=== PATIENT | male | born 1945 | race Caucasian/White ===

== ENCOUNTER → 2016-08-23 | Outpatient (CLI) | payer OTHER | LOC: M SMT 08:29 | PROVIDERS: ATTEND Nurse Practitioner Women's Health | DX: R97.20 Elevated prostate specific antigen [PSA] (principal) ==

== ENCOUNTER → 2016-10-28 | Outpatient (REF) | payer OTHER ==
[2016-10-28 11:54] LABS: BASO % 0.5 % (0.0-1.0); EOS # 0.1 K/mm3 (0.0-0.50); EOS % 1.3 % (0.0-3.0); LARGE UNSTAINED CELL # 0.1 K/mm3 (0.0-0.4); LARGE UNSTAINED CELL % 1.1 % (0.0-4.0); LYMPH # 1.4 K/mm3 (1.5-4.5); LYMPH % 17.4 % (24.0-44.0); MEAN CORPUSCULAR HEMOGLOBIN 32.4 pg (27.0-33.0); MEAN CORPUSCULAR HGB CONC 35.6 g/dl (32.0-36.5); MONO # 0.3 K/mm3 (0.0-0.8); MONO % 4.2 % (0.0-5.0); NEUTROPHILS # 5.6 K/mm3 (1.8-7.7); NEUTROPHILS % 75.4 % (36.0-66.0); PLATELET COUNT, AUTOMATED 135 k/mm3 (150-450); RED CELL DISTRIBUTION WIDTH 13.6 % (11.5-14.5); WHITE BLOOD COUNT 7.5 K/mm3 (4.0-10.0)
[2016-10-28 12:31] LABS: CHOLESTEROL LEVEL 168 MG/DL (<200); THYROXINE (T4) 11.3 UG/DL (4.5-12.0); TRIGLYCERIDES LEVEL 439 MG/DL (<150)
== END ==
LOC: M SFHCCLAY 07:55
PROVIDERS: ATTEND Family Medicine
DX: I10 Essential (primary) hypertension (principal); R53.83 Other fatigue; E11.9 Type 2 diabetes mellitus without complications; E78.2 Mixed hyperlipidemia
CPT/HCPCS: 80061; 83036; 83540; 84436; 84443; 84480; 85025; G0463

== ENCOUNTER → 2016-11-17 | Outpatient (CLI) | payer OTHER ==
--- NOTE | 2016-11-17 12:46 | REP ---
LUMBAR SPINE, FIVE VIEWS: HISTORY: Back pain. There is no acute fracture. There is an old compression fracture of the T12 vertebral body with minimal height loss. The lumbar intervertebral discs are decreased in height consistent with disc degeneration. . Osteophytes are present throughout the lumbar spine. There is narrowing of the L4-5 and left L5-S1 facet joints. There are 5 mm of grade 1 spondylolisthesis of L4 on L5. IMPRESSION:Degenerative change as described above.
== END ==
LOC: M CLY 11:43
PROVIDERS: ATTEND Family Medicine
DX: M51.36 Other intervertebral disc degeneration, lumbar region (principal)
CPT/HCPCS: 72110; G0463

== ENCOUNTER → 2017-11-02 | Outpatient (REF) | payer OTHER ==
[2017-11-02 12:12] LABS: ALBUMIN/GLOBULIN RATIO 1.08 (1.00-1.93); ALKALINE PHOSPHATASE 63 U/L (45-117); ALT/SGPT 28 U/L (12-78); ANION GAP 6 MEQ/L (8-16); AST/SGOT 28 U/L (7-37); BILIRUBIN,TOTAL 0.6 MG/DL (0.2-1.0); BLOOD UREA NITROGEN 13 MG/DL (7-18); CALCIUM LEVEL 8.4 MG/DL (8.8-10.2); CARBON DIOXIDE LEVEL 31 MEQ/L (21-32); CHLORIDE LEVEL 105 MEQ/L (98-107); CHOLESTEROL LEVEL 154 MG/DL (<200); CHOLESTEROL RISK RATIO 3.666 (<5); CREATININE FOR GFR 1.14 MG/DL (0.70-1.30); GLOMERULAR FILTRATION RATE > 60.0 (>42); GLUCOSE, FASTING 156 MG/DL (70-100); HDL CHOLESTEROL 42 MG/DL (>40); NON-HDL-C 112 MG/DL; SODIUM LEVEL 142 MEQ/L (136-145); TOTAL PROTEIN 7.7 GM/DL (6.4-8.2); TRIGLYCERIDES LEVEL 422 MG/DL (<150)
[2017-11-02 12:15] LABS: POTASSIUM SERUM 5.2 MEQ/L (3.5-5.1)
[2017-11-02 15:45] LABS: ESTIMATED AVERAGE GLUCOSE 174 MG/DL (60-110); HEMOGLOBIN A1c 7.7 %
== END ==
LOC: M SFHCCLAY 08:03
DX: E78.2 Mixed hyperlipidemia (principal); E11.9 Type 2 diabetes mellitus without complications
CPT/HCPCS: 80053

== ENCOUNTER → 2018-03-08 | Outpatient (REF) | payer OTHER ==
[2018-03-08 11:59] LABS: ALBUMIN 4.4 GM/DL (3.2-5.2); BILIRUBIN,TOTAL 0.6 MG/DL (0.2-1.0); CALCIUM LEVEL 9.2 MG/DL (8.8-10.2); CREATININE FOR GFR 1.64 MG/DL (0.70-1.30); GLOMERULAR FILTRATION RATE 43.9 (>42); POTASSIUM SERUM 4.8 MEQ/L (3.5-5.1); TOTAL PROTEIN 7.9 GM/DL (6.4-8.2)
[2018-03-08 12:06] LABS: HEMOGLOBIN A1c 7.6 %
== END ==
LOC: M SFHCCLAY 08:20
PROVIDERS: ATTEND Family Medicine
DX: E11.9 Type 2 diabetes mellitus without complications (principal)
CPT/HCPCS: 80053; 83036; G0463

== ENCOUNTER → 2018-03-16 | Outpatient (REF) | payer MEDICARE, OTHER ==
[2018-03-16 13:35] LABS: MAU/CREAT RATIO 168.4 MCG/MG (0.0-30.0)
== END ==
LOC: M SFHCCLAY 12:23
PROVIDERS: ATTEND Family Medicine
DX: E11.9 Type 2 diabetes mellitus without complications (principal)

== ENCOUNTER → 2018-06-29 | Outpatient (REF) | payer MEDICARE ==
[2018-06-29 17:15] LABS: ALBUMIN 4.4 GM/DL (3.2-5.2); ALT/SGPT 30 U/L (12-78); BILIRUBIN,TOTAL 0.4 MG/DL (0.2-1.0); BLOOD UREA NITROGEN 19 MG/DL (7-18); CALCIUM LEVEL 8.7 MG/DL (8.8-10.2); CARBON DIOXIDE LEVEL 27 MEQ/L (21-32); CHLORIDE LEVEL 104 MEQ/L (98-107); CHOLESTEROL LEVEL 202 MG/DL (<200); CHOLESTEROL RISK RATIO 4.697 (<5); GLOMERULAR FILTRATION RATE 57.4 (>42); GLUCOSE, FASTING 216 MG/DL (70-100); HDL CHOLESTEROL 43 MG/DL (>40); NON-HDL-C 159 MG/DL; POTASSIUM SERUM 5.1 MEQ/L (3.5-5.1); SODIUM LEVEL 138 MEQ/L (136-145); TOTAL PROTEIN 7.5 GM/DL (6.4-8.2); TRIGLYCERIDES LEVEL 519 MG/DL (<150)
[2018-06-29 17:24] LABS: HEMOGLOBIN A1c 7.3 %
== END ==
LOC: M SFHCCLAY 11:35
PROVIDERS: ATTEND Family Medicine
DX: E11.9 Type 2 diabetes mellitus without complications (principal); E78.2 Mixed hyperlipidemia
CPT/HCPCS: 80053; 80061; 83036; G0463

== ENCOUNTER → 2018-08-14 | Outpatient (REF) | payer MEDICARE ==
[2018-08-15 12:08] LABS: ALBUMIN 4.2 GM/DL (3.2-5.2); BILIRUBIN,TOTAL 0.4 MG/DL (0.2-1.0); CALCIUM LEVEL 9.5 MG/DL (8.8-10.2); CREATININE FOR GFR 1.71 MG/DL (0.70-1.30); GLOMERULAR FILTRATION RATE 41.9 (>42); MAGNESIUM LEVEL 1.5 MG/DL (1.8-2.4); POTASSIUM SERUM 5.6 MEQ/L (3.5-5.1); TOTAL PROTEIN 8.1 GM/DL (6.4-8.2)
== END ==
LOC: M SFHCCLAY 14:29
PROVIDERS: ATTEND Family Medicine
DX: N17.9 Acute kidney failure, unspecified (principal)
CPT/HCPCS: 80053; 83735; G0463

== ENCOUNTER → 2018-08-18 | Outpatient (CLI) | payer MEDICARE ==
--- NOTE | 2018-08-19 07:15 | REP ---
MR LUMBAR SPINE WITHOUT CONTRAST: HISTORY: Back and right leg pain. Decreased signal intensity on T2-weighted images is present in the L1-2 through L4-5 intervertebral discs. The discs are decreased in height. These findings are consistent with disc degeneration. There is no disc bulge or herniation at the L1-2 level. There is hypertrophy of the posterior articulating facets. The L1 nerves exit the neural foramina without compression. A diffuse disc bulge is present at the L2-3 level. There is minimal compression of the thecal sac. There is hypertrophy of the ligamenta flava and posterior articulating facets. The L2 nerves exit the neural foramina without compression. A diffuse disc bulge is present at the L3-4 level. There is hypertrophy of the ligamenta flava and posterior articulating facets. These findings produce minimal central canal stenosis. The L3 nerves exit the neural foramina without compression. A diffuse disc bulge is present at the L4-5 level. There is hypertrophy of the ligamenta flava and posterior articulating facets. There are 3 mm of grade 1 spondylolisthesis of L4 on L5. These findings produce severe central canal stenosis. The L4 nerves exit the neural foramina without compression. A diffuse disc bulge is present at the L5-S1 level. This abuts the thecal sac and S1 nerves. There is hypertrophy of the posterior articulating facets. The L5 nerves exit the neural foramina without compression. The conus medullaris is normal in appearance terminating at the level of the T12-L1 intervertebral disc. Normal signal intensity is present in the lumbar vertebral bodies. IMPRESSION: 1. Diffuse disc bulge at the L2-3 level with minimal thecal sac compression. 2. Minimal central canal stenosis at the L3-4 level secondary to disc bulge, ligamentous and facet hypertrophy. 3. Severe central canal stenosis at the L4-5 level secondary to disc bulge, ligamentous and facet hypertrophy and grade 1 spondylolisthesis. 4. Diffuse disc bulge at the L5-S1 level. This abuts the thecal sac and S1 nerves. Electronically Signed by Silver Dowling MD 08/19/2018 08:45 A
== END ==
LOC: M RAD 13:48
PROVIDERS: ATTEND Family Medicine
DX: M54.5 Low back pain (principal)

== ENCOUNTER → 2018-11-06 | Outpatient (REF) | payer MEDICARE ==
[2018-11-06 16:52] LABS: CHOLESTEROL LEVEL 149 MG/DL (<200); CHOLESTEROL RISK RATIO 4.027 (<5); HDL CHOLESTEROL 37 MG/DL (>40); NON-HDL-C 112 MG/DL; TRIGLYCERIDES LEVEL 425 MG/DL (<150)
[2018-11-06 17:15] LABS: HEMOGLOBIN A1c 7.6 %
== END ==
LOC: M SFHCCLAY 11:46
PROVIDERS: ATTEND Family Medicine
DX: E11.40 Type 2 diabetes mellitus with diabetic neuropathy, unspecified (principal)
CPT/HCPCS: 80061; 83036; G0463

== ENCOUNTER → 2019-02-12 | Outpatient (REF) | payer MEDICARE ==
[2019-02-12 16:49] LABS: ALBUMIN 4.1 GM/DL (3.2-5.2); BILIRUBIN,TOTAL 0.4 MG/DL (0.2-1.0); CALCIUM LEVEL 8.9 MG/DL (8.8-10.2); CREATININE FOR GFR 1.35 MG/DL (0.70-1.30); GLOMERULAR FILTRATION RATE 54.8 (>42); POTASSIUM SERUM 4.5 MEQ/L (3.5-5.1); TOTAL PROTEIN 7.8 GM/DL (6.4-8.2)
[2019-02-12 18:31] LABS: HEMOGLOBIN A1c 8.8 %
== END ==
LOC: M SFHCCLAY 11:11
PROVIDERS: ATTEND Family Medicine
DX: E11.40 Type 2 diabetes mellitus with diabetic neuropathy, unspecified (principal)
CPT/HCPCS: 80053; 83036; G0463

== ENCOUNTER → 2019-05-13 | Outpatient (REF) | payer MEDICARE ==
[2019-05-13 18:34] LABS: ALBUMIN 4.2 GM/DL (3.2-5.2); BILIRUBIN,TOTAL 0.7 MG/DL (0.2-1.0); CALCIUM LEVEL 8.6 MG/DL (8.8-10.2); CREATININE FOR GFR 1.61 MG/DL (0.70-1.30); GLOMERULAR FILTRATION RATE 44.8 (>42); TOTAL PROTEIN 7.8 GM/DL (6.4-8.2)
[2019-05-13 19:07] LABS: HEMOGLOBIN A1c 8.9 %
== END ==
LOC: M SFHCCLAY 09:49
PROVIDERS: ATTEND Family Medicine
DX: E11.40 Type 2 diabetes mellitus with diabetic neuropathy, unspecified (principal)
CPT/HCPCS: 80053; 83036; G0463

== ENCOUNTER → 2019-08-12 | Outpatient (REF) | payer MEDICARE ==
[2019-08-12 13:13] LABS: CALCIUM LEVEL 8.7 MG/DL (8.8-10.2); CREATININE FOR GFR 1.45 MG/DL (0.70-1.30); GLOMERULAR FILTRATION RATE 50.5 (>42); POTASSIUM SERUM 6.3 MEQ/L (3.5-5.1)
[2019-08-12 14:17] LABS: HEMOGLOBIN A1c 8.8 %
== END ==
LOC: M SFHCCLAY 08:46
PROVIDERS: ATTEND Family Medicine
DX: E11.40 Type 2 diabetes mellitus with diabetic neuropathy, unspecified (principal)
CPT/HCPCS: 80048; 83036; G0463

== ENCOUNTER → 2019-11-29 | Outpatient (REF) | payer MEDICARE ==
[2019-11-29 13:00] LABS: HEMATOCRIT 45.3 % (42.0-52.0); HEMOGLOBIN 15.1 g/dl (13.5-17.5); MEAN CORPUSCULAR HEMOGLOBIN 30.3 pg (27.0-33.0); MEAN CORPUSCULAR HGB CONC 33.3 g/dl (32.0-36.5); MEAN CORPUSCULAR VOLUME 90.8 fl (80.0-96.0); PLATELET COUNT, AUTOMATED 162 10^3/uL (150-450); RED BLOOD COUNT 4.99 10^6/uL (4.30-6.10); WHITE BLOOD COUNT 9.2 10^3/uL (4.0-10.0)
[2019-11-29 13:46] LABS: ALT/SGPT 26 U/L (12-78); BILIRUBIN,TOTAL 0.6 MG/DL (0.2-1.0); BLOOD UREA NITROGEN 25 MG/DL (7-18); CALCIUM LEVEL 9.2 MG/DL (8.8-10.2); CARBON DIOXIDE LEVEL 26 MEQ/L (21-32); CHLORIDE LEVEL 102 MEQ/L (98-107); CHOLESTEROL LEVEL 187 MG/DL (<200); CHOLESTEROL RISK RATIO 4.065 (<5); GLOMERULAR FILTRATION RATE 45.1 (>42); GLUCOSE, FASTING 168 MG/DL (70-100); HDL CHOLESTEROL 46 MG/DL (>40); NON-HDL-C 141 MG/DL; POTASSIUM SERUM 4.6 MEQ/L (3.5-5.1); SODIUM LEVEL 135 MEQ/L (136-145); TOTAL PROTEIN 7.6 GM/DL (6.4-8.2); TRIGLYCERIDES LEVEL 457 MG/DL (<150)
[2019-11-29 15:33] LABS: HEMOGLOBIN A1c 8.3 %
== END ==
LOC: M SFHCCLAY 11:48
PROVIDERS: ATTEND Family Medicine
DX: E11.9 Type 2 diabetes mellitus without complications (principal); I10 Essential (primary) hypertension

== ENCOUNTER → 2020-02-27 | Outpatient (REF) | payer MEDICARE ==
[2020-02-27 12:20] LABS: CALCIUM LEVEL 8.9 MG/DL (8.8-10.2); CREATININE FOR GFR 1.72 MG/DL (0.70-1.30); GLOMERULAR FILTRATION RATE 41.4 (>42); POTASSIUM SERUM 4.7 MEQ/L (3.5-5.1)
[2020-02-27 15:07] LABS: HEMOGLOBIN A1c 8.8 %
== END ==
LOC: M SFHCCLAY 09:20
PROVIDERS: ATTEND Family Medicine
DX: E11.40 Type 2 diabetes mellitus with diabetic neuropathy, unspecified (principal)
CPT/HCPCS: 80048; 83036; G0463

== ENCOUNTER → 2020-03-04 | Outpatient (CLI) | payer SELFPAY | LOC: M LABSMTC 13:01 | PROVIDERS: ATTEND Pediatrics | DX: Z11.59 Encounter for screening for other viral diseases (principal) ==

== ENCOUNTER 2020-03-13 12:34 | Inpatient (IN) | payer MEDICARE ==
[~2020-03-13] VITALS: Ht 180.3 cm; Wt 73.0 kg
[2020-03-13 13:21] LABS: BASO % 0.2 % (0.0-1.0); HEMATOCRIT 40.6 % (42.0-52.0); HEMOGLOBIN 13.7 g/dl (13.5-17.5); LYMPH # 0.5 10^3/uL (1.5-5.0); LYMPH % 6.3 % (24.0-44.0); MEAN CORPUSCULAR HEMOGLOBIN 28.8 pg (27.0-33.0); MEAN CORPUSCULAR HGB CONC 33.7 g/dl (32.0-36.5); MEAN CORPUSCULAR VOLUME 85.5 fl (80.0-96.0); MONO # 0.6 10^3/uL (0.0-0.8); MONO % 6.8 % (0.0-5.0); NEUTROPHILS # 7.1 10^3/uL (1.5-8.5); NEUTROPHILS % 86.2 % (36.0-66.0); PLATELET COUNT, AUTOMATED 174 10^3/uL (150-450); RED BLOOD COUNT 4.75 10^6/uL (4.30-6.10); WHITE BLOOD COUNT 8.2 10^3/uL (4.0-10.0)
--- NOTE | 2020-03-13 13:25 | REP ---
INDICATION: Coronavirus workup COMPARISON: None TECHNIQUE: Portable AP view of the chest FINDINGS: The mediastinum and cardiac silhouette are within normal limits for portable technique. The lung flor demonstrate chronic appearing interstitial changes and suspected superimposed lower lobe airspace disease. No effusion. No pneumothorax. IMPRESSION: Cannot exclude superimposed lower lobe airspace disease. <Electronically signed by Ramón Barragan > 03/13/20 [id number]
[2020-03-13 13:46] LABS: INR 1.11; PARTIAL THROMBOPLASTIN TIME 35.3 SECONDS (24.2-38.5); PROTHROMBIN TIME 14.5 SECONDS (12.5-14.3)
[2020-03-13 13:49] LABS: D-DIMER QUANT 1070.8 ng/ml (<500)
[2020-03-13 13:51] LABS: ALBUMIN 3.4 GM/DL (3.2-5.2); ALT/SGPT 20 U/L (12-78); BILIRUBIN,TOTAL 0.9 MG/DL (0.2-1.0); BLOOD UREA NITROGEN 34 MG/DL (7-18); CALCIUM LEVEL 8.8 MG/DL (8.8-10.2); CARBON DIOXIDE LEVEL 25 MEQ/L (21-32); CHLORIDE LEVEL 101 MEQ/L (98-107); CK-MB VALUE MASS 2.3 NG/ML (<3.6); CPK CREATINE PHOSPHOKINASE 241 U/L (39-308); CREATININE FOR GFR 1.69 MG/DL (0.70-1.30); FERRITIN 605 NG/ML (26-388); GLOMERULAR FILTRATION RATE 42.2 (>42); GLUCOSE, FASTING 211 MG/DL (70-100); LDH LACTATE DEHYDROGENASE 485 U/L (87-241); MAGNESIUM LEVEL 1.6 MG/DL (1.8-2.4); MB/CK RELATIVE INDEX 0.95 (< OR =4); POTASSIUM SERUM 3.9 MEQ/L (3.5-5.1); SODIUM LEVEL 134 MEQ/L (136-145); TOTAL PROTEIN 8.1 GM/DL (6.4-8.2); TROPONIN I < 0.02 NG/ML (< 0.10)
[2020-03-13] MEDS ORDERED: NS 1,000 ML IV SCH (14:12)
[2020-03-13] MEDS ORDERED: ANOR1AER INH (14:22)
[2020-03-13] MEDS ORDERED: GNP250TA9 PO (14:22)
[2020-03-13] MEDS ORDERED: FLOM0.4C39 PO (14:22)
[2020-03-13] MEDS ORDERED: OMEP40CA97 PO (14:22)
[2020-03-13] MEDS ORDERED: ALEN70TA82 PO (14:22)
[2020-03-13] MEDS ORDERED: GABA-282 PO (14:22)
[2020-03-13] MEDS ORDERED: ATEN25TA PO (14:22)
[2020-03-13] MEDS ORDERED: GLYCCAP PO (14:22)
[2020-03-13] MEDS ORDERED: TRAM50TA2 PO (14:22)
[2020-03-13] MEDS ORDERED: CETI-24 PO (14:22)
[2020-03-13] MEDS ORDERED: ATOR80TA59 PO (14:22)
[2020-03-13] MEDS ORDERED: vit d (14:22)
[2020-03-13] MEDS ORDERED: CALC-190 PO (14:22)
[2020-03-13] MEDS ORDERED: LANTINJ4 SC (14:24)
[2020-03-13] MEDS ORDERED: CALC600T52 PO (15:30)
[2020-03-13] MEDS ORDERED: CYAN2500 SL (15:30)
[2020-03-13] MEDS ORDERED: cefTRIAXone SOD 1 GM in D5W MINI-BAG PLUS 50 ML IV SCH (15:30)
[2020-03-13] MEDS ORDERED: VITA500054 PO (15:30)
[2020-03-13] MEDS ORDERED: NITR4TASL SL (15:30)
[2020-03-13] MEDS ORDERED: AZITHROMYCIN INJ 500 MG, VIAL MATE ADAPTER 1 EACH in D5W 250 ML IV SCH (15:30)
[2020-03-13] MEDS ORDERED: ASPI81TA26 PO (15:30)
[2020-03-13] MEDS ORDERED: NITROGLYCERIN 0.4 MG SUBL TABLET SL PRN (15:45)
[2020-03-13] MEDS ORDERED: COMBIVENT RESPIMAT 100-20MCG INHALER 4GM INH PRN (15:45)
[2020-03-13] MEDS ORDERED: DEXTROSE 50% 50 ML SYRINGE IV PRN (16:45)
[2020-03-13] MEDS ORDERED: GLUCAGON INJ 1MG VIAL SC PRN (16:45)
[2020-03-13] MEDS ORDERED: GLUCOSE 4GM CHEW TABLET PO PRN (16:45)
--- NOTE | 2020-03-13 16:50 | HPEPDOC ---
General Date of Admission Mar 13, 2020 at 15:25 Date of Service: Mar 13, 2020 Chief Complaint The patient is a 74-year-old male admitted with a reason for visit of Covid- 19/Hypoxia. Source: Patient, Family History of Present Illness Mr. Richardson is a 74-year-old male with COPD and diabetes mellitus who presents for altered mental status and hypoxia. He is currently a poor historian and has some difficulty hearing. I spoke to the who is able present more of the history. On March 04, he was tested for coded because his daughter was COVID positive. He had tested positive and his test and negative. He was asymptomatic until 03/08/2020, they became confused and not feeling well. It was worse in the evening. Then, in the past few days, he's been very lethargic and stayed in bed most of the time. There is brought to the ED today, and at room air he saturated between 80% -88%. He required 3 L to maintain saturations above 88%. When I spoke with him, he tells me that he lost 4 days. Otherwise reports dyspnea and occasional cough. He has some sharp chest pain when he coughs. He also has decreased appetite. Otherwise denies fever, headache, changes in vision, or abdominal pain. Lungs had dry crackles. Chest x- ray suspected superimposed lower lobe airspace disease. His pro-calcitonin was elevated at 1.61. Patient will be admitted for COVID pneumonia and metabolic encephalopathy Home Medications Scheduled Alendronate Sodium (Alendronate Sodium) 70 Mg Tablet, 70 MG PO QWEEK, (Reported) MONDAY Aspirin (Aspirin EC) 81 Mg Tablet.dr, 81 MG PO QHS, (Reported) Atenolol (Atenolol) 25 Mg Tablet, 25 MG PO QHS, (Reported) Atorvastatin Calcium (Atorvastatin Calcium) 80 Mg Tablet, 80 MG PO QHS, (Repo rted) Calcium Carbonate/Vitamin D3 (Calcium 600-Vit D3 400 Tablet) 1 Each Tablet, 1 TAB PO BID, (Reported) Cetirizine HCl (Cetirizine HCl) 10 Mg Tablet, 10 MG PO DAILY, (Reported) Cholecalciferol (Vitamin D3) (Vitamin D3) 125 Mcg Capsule, 125 MCG PO DAILY, (Reported) Cyanocobalamin (Vitamin B-12) (Vitamin B-12) 2,500 Mcg Tab.subl, 2,500 MCG SL DAILY, (Reported) Gabapentin (Gabapentin) 300 Mg Capsule, 300 MG PO QHS, (Reported) Insulin Glargine,Hum.rec.anlog (Lantus Solostar) 100 Unit/1 Ml Insuln.pen, 50 UNIT SC QHS, (Reported) Magnesium Oxide (Magnesium) 250 Mg Tablet, 250 MG PO BID, (Reported) Omeprazole (Omeprazole) 40 Mg Capsule.dr, 40 MG PO DAILY, (Reported) Tamsulosin HCl (Flomax) 0.4 Mg Capsule, 0.4 MG PO DAILY, (Reported) Umeclidinium Brm/Vilanterol Tr (Anoro Ellipta 62.5-25 Mcg INH) 1 Each Blst.w.dev, 1 PUFF INH DAILY, (Reported) Scheduled PRN Nitroglycerin (Nitrostat) 0.4 Mg Tab.subl, 0.4 MG SL Q5MP PRN for CHEST PAIN, (Reported) Tramadol HCl (Tramadol HCl) 50 Mg Tablet, 50 MG PO QID PRN for PAIN, (Reported) Allergies Coded Allergies: Penicillins (Verified Allergy, Severe, anaphylaxis, 03/13/20) anaph Past Medical History Medical History 1. COPD 2. Diabetes mellitus type 2 3. History of CHF 4. Hyperlipidemia Surgical History 1. Cholecystectomy 2. 3 hernia repairs Family History He tells me that he does not know his mother's or father's past medical history Social History * Smoker: former Smoker (quit smoking in 1989) Alcohol: Denies Drugs: denies A-FIB/CHADSVASC A-FIB History Current/History of A-Fib/PAF?: No Review of Systems Constitutional: Denies: Fever Eyes: Denies: Vision change ENT: Denies: Sore Throat Skin: Denies: Rash Pulmonary: Reports: Dyspnea, Cough Cardiovascular: Reports: Chest Pain (sharp, worsened with coughing) Gastrointestinal: Denies: Nausea, Abdominal Pain Genitourinary: Denies: Dysuria Hematologic: Reports: Bruising Neurological: Denies: Numbness Psych: Reports: Memory Issues (lost 4 days) Physical Examination General Exam: Positive: Cooperative Eye Exam: Positive: EOMI; Negative: Sclera icteric ENT Exam: Positive: Atraumatic Neck Exam: Positive: Supple Chest Exam: Positive: Rhonchi Heart Exam: Positive: Rate Normal, Regular Rhythm Abdomen Exam: Positive: Normal bowel sounds, Soft, Tenderness (mild periumbilical tenderness) Extremity Exam: Negative: Edema Skin Exam: Positive: Nl turgor and temperature Neuro Exam: Positive: Cranial Nerves 3-12 NL Psych Exam: Negative: Memory Intact Vital Signs Vital Signs Date Time Temp Pulse Resp B/P (MAP) Pulse Ox O2 Delivery O2 Flow Rate FiO2 03/13/20 13:25 99 88 Nasal Cannula 3.0 03/13/20 13:15 127/74 (91) 03/13/20 12:49 98.1 24 Laboratory Data Labs 24H Laboratory Tests 2 03/13/20 13:03: Immature Granulocyte % (Auto) 0.5, Neutrophils (%) (Auto) 86.2H, Lymphocytes (%) (Auto) 6.3L, Monocytes (%) (Auto) 6.8H, Eosinophils (%) (Auto) 0.0, Basophils (%) (Auto) 0.2, Neutrophils # (Auto) 7.1, Lymphocytes # (Auto) 0.5L, Monocytes # (Auto) 0.6, Eosinophils # (Auto) 0.0, Basophils # (Auto) 0.0, Nucleated Red Blood Cells % (auto) 0.0, Prothrombin Time 14.5H, Prothromb Time International Ratio 1.11, Activated Partial Thromboplast Time 35.3, Fibrinogen 718H, D-Dimer, Quantitative 1070.80H, Anion Gap 8, Glomerular Filtration Rate 42.2, Lactic Acid Level 2.7*H, Calcium Level 8.8, Magnesium Level 1.6L, Ferritin 605H, Total Bilirubin 0.9, Aspartate Amino Transf (AST/SGOT) 39H, Alanine Aminotransferase (ALT/SGPT) 20, Alkaline Phosphatase 66, Lactate Dehydrogenase 485H, Total Creatine Kinase 241, Creatine Kinase MB 2.3, Creatine Kinase MB Relative Index 0.95, Troponin I < 0.02, C-Reactive Protein, Quantitative 13.80H, Total Protein 8.1, Albumin 3.4, Albumin/Globulin Ratio 0.7, Procalcitonin 1.61 CBC/BMP Laboratory Tests 03/13/20 13:03 Microbiology Microbiology 03/13/20 Blood Culture, Received Pending Assessment/Plan Mr. Richardson is a 74-year-old male with COPD and diabetes mellitus who presents for metabolic encephalopathy was likely secondary to COVID Pneumonia. With the elevated procalcitonin, will treat with antibiotics for CAP. Due to penicillin allergy, will used Levofloxacin. For COVID infection, he will be given dexamethasone, Remdesivir, and DVT ppx of lovenox. Cautious due to CKD. Plan / VTE VTE Prophylaxis Ordered?: Yes Plan Plan 1. Metabolic encephalopathy Most likely secondary to COVID pneumonia We'll check UA as well Treat underlying cause Supportive care 2. COVID pneumonia Hypoxic, at room air saturating between 80%-88% Dexamethasone and Remdesivir Due to chronic kidney disease, we'll do DVT prophylaxis level of Lovenox Trend inflammatory markers Since Pro calcitonin is elevated at 1.6, we'll give antibiotics 3. COPD Not an exacerbation Convert Anoro Elipta to Spiriva and Perforomist Combivent as needed pressure is of breath or wheezing 4. Diabetes mellitus Since on carb consistent diet, we'll decrease his basal insulin from 50 units at bedtime to 25 units at bedtime Sliding scale insulin with hypoglycemia protocol Carbohydrate consistent diet 5. GERD Continue omeprazole 6. BPH Continue tamsulosin 7. DVT prophylaxis Lovenox subcutaneous MARNI FRIEDMAN DO Mar 13, 2020 16:33
[2020-03-13] MEDS ORDERED: SODIUM CHLORIDE 0.9% INJ 10 ML SYR IV ONE (17:30)
[2020-03-13 20:00] VITALS: O2SAT 90
[2020-03-13] MEDS: FORMOTEROL FUMARATE 20 MCG/2 ML INHALATION SOLUTION (PERFOROMIST) INH SCH (20:00)
[2020-03-13] MEDS ORDERED: LEVEMIR (INSULIN DETEMIR) 1 UNITS/0.01ML SC SCH (21:00)
[2020-03-13] MEDS: HumaLOG INSULIN (NovoLOG) PER UNIT SC SCH ×2 (21:00→21:28)
[2020-03-13] MEDS: OMEPRAZOLE 20 MG CAP PO SCH (21:29)
[2020-03-13] MEDS: TAMSULOSIN 0.4 MG CAP PO SCH (21:29)
[2020-03-13] MEDS: GABAPENTIN 300 MG CAP PO SCH (21:33)
[2020-03-13] MEDS: ATORVASTATIN 20 MG TAB PO SCH (21:34)
[2020-03-13] MEDS: atenoloL 25 MG TAB PO SCH (21:34)
[2020-03-13] MEDS: LEVEMIR (INSULIN DETEMIR) 1 UNITS/0.01ML SC SCH (21:35)
[2020-03-13] MEDS: ASPIRIN 81 MG ENTERIC TAB PO SCH (21:35)
[2020-03-13 22:00] VITALS: BP 115/65
[2020-03-14] VITALS (8 sets, daily range): BP systolic 96–126; BP diastolic 56–64; O2SAT 89–92
[2020-03-14] MEDS: LevoFLOXacin IV 750 MG in IV 1 EA IV SCH (00:17)
[2020-03-14 07:13] LABS: BASO % 0.1 % (0.0-1.0); EOS % 0.1 % (0.0-3.0); HEMATOCRIT 37.5 % (42.0-52.0); HEMOGLOBIN 12.7 g/dl (13.5-17.5); LYMPH # 0.5 10^3/uL (1.5-5.0); LYMPH % 6.6 % (24.0-44.0); MEAN CORPUSCULAR HEMOGLOBIN 29.6 pg (27.0-33.0); MEAN CORPUSCULAR HGB CONC 33.9 g/dl (32.0-36.5); MEAN CORPUSCULAR VOLUME 87.4 fl (80.0-96.0); MONO # 0.4 10^3/uL (0.0-0.8); MONO % 5.6 % (0.0-5.0); NEUTROPHILS # 6.4 10^3/uL (1.5-8.5); NEUTROPHILS % 87.1 % (36.0-66.0); PLATELET COUNT, AUTOMATED 171 10^3/uL (150-450); RED BLOOD COUNT 4.29 10^6/uL (4.30-6.10); WHITE BLOOD COUNT 7.4 10^3/uL (4.0-10.0)
[2020-03-14 07:41] LABS: INR 1.05; PROTHROMBIN TIME 13.9 SECONDS (12.5-14.3)
[2020-03-14 07:42] LABS: PARTIAL THROMBOPLASTIN TIME 34.9 SECONDS (24.2-38.5)
[2020-03-14 07:46] LABS: ALBUMIN 2.9 GM/DL (3.2-5.2); BILIRUBIN,DIRECT 0.2 MG/DL (0.0-0.2); BILIRUBIN,TOTAL 0.6 MG/DL (0.2-1.0); CALCIUM LEVEL 7.9 MG/DL (8.8-10.2); CREATININE FOR GFR 1.41 MG/DL (0.70-1.30); MAGNESIUM LEVEL 1.5 MG/DL (1.8-2.4); POTASSIUM SERUM 4.1 MEQ/L (3.5-5.1); TOTAL PROTEIN 6.5 GM/DL (6.4-8.2)
[2020-03-14] MEDS: FORMOTEROL FUMARATE 20 MCG/2 ML INHALATION SOLUTION (PERFOROMIST) INH SCH ×2 (08:00→20:00)
[2020-03-14] MEDS: TIOTROPIUM INHALER/CAPSULE (SPIRIVA) INH SCH (08:00)
[2020-03-14] MEDS: dexameTHASONE 4 MG/ML 1ML VIAL (J1100 PER 1MG) IV SCH (09:08)
[2020-03-14] MEDS: ENOXAPARIN 40MG/0.4ML SYRINGE (J1650 PER 10MG) SC SCH (09:09)
[2020-03-14] MEDS: HumaLOG INSULIN (NovoLOG) PER UNIT SC SCH ×4 (09:10→20:27)
[2020-03-14] MEDS: OMEPRAZOLE 20 MG CAP PO SCH (09:10)
[2020-03-14] MEDS: TAMSULOSIN 0.4 MG CAP PO SCH (09:11)
[2020-03-14] MEDS: CETIRIZINE (ZyrTEC) 10 MG TAB PO SCH (09:11)
--- NOTE | 2020-03-14 09:21 | ECGEPIP ---
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
[2020-03-14] MEDS: MAG SULF 1GM/100ML (MAG RUN) 1 GM in IV 1 EA IV SCH ×2 (09:38→11:04)
[2020-03-14] MEDS: traMADol 50 MG TAB PO PRN (09:39)
--- NOTE | 2020-03-14 14:42 | IPNPDOC ---
Subjective Date Seen The patient was seen on 03/14/20. Subjective Chief Complaint/HPI Mr. Richardson is a 74-year-old male with COPD and diabetes mellitus who presents for altered mental status and hypoxia. Overnight, his oxygen requirements increased to 15L Venti mask. This morning, he was feeling better and mentally clearer. A&Ox3. His answers were appropriate and coherent. Denies dyspnea, chest pain, or abdominal pain. When he takes off the mask, his oxygen does decrease, but rapidly increases when mask is back on. We spoke about code status, and he requested to be DNR/DNI. I discussed it with his , Carlee. She also agrees that his mentation is significantly better (she spoke with him this morning) and also agrees to DNR/DNI (he had called her prior to me calling about code status). Objective Physical Examination General Exam: Positive: Cooperative Eye Exam: Positive: EOMI; Negative: Sclera icteric ENT Exam: Positive: Atraumatic Neck Exam: Positive: Supple Chest Exam: Positive: Rhonchi Heart Exam: Positive: Rate Normal, Regular Rhythm Abdomen Exam: Positive: Normal bowel sounds, Soft, Tenderness (mild periumbilical tenderness) Extremity Exam: Negative: Edema Skin Exam: Positive: Nl turgor and temperature Neuro Exam: Positive: Cranial Nerves 3-12 NL Psych Exam: Positive: Oriented x 3 Assessment /Plan Assessment Mr. Richardson is a 74-year-old male with COPD and diabetes mellitus who presents for metabolic encephalopathy was likely secondary to COVID Pneumonia. With the elevated procalcitonin, will treat with antibiotics for CAP. Due to penicillin allergy, will used Levofloxacin. For COVID infection, he will be given dexamethasone, Remdesivir, and DVT ppx of lovenox. Cautious with Lovenox due to CKD. Plan/VTE VTE Prophylaxis Ordered?: Yes Plan 1. Metabolic encephalopathy Most likely secondary to COVID pneumonia We'll check UA as well Treat underlying cause Supportive care -Resolved 2. COVID pneumonia Hypoxic, at room air saturating between 80%-88% Dexamethasone and Remdesivir Due to chronic kidney disease, we'll do DVT prophylaxis level of Lovenox Trend inflammatory markers Since Pro calcitonin is elevated at 1.6, we'll give antibiotics 3. COPD Not an exacerbation Convert Anoro Elipta to Spiriva and Perforomist Combivent as needed pressure is of breath or wheezing 4. Diabetes mellitus Since on carb consistent diet, we'll decrease his basal insulin from 50 units at bedtime to 25 units at bedtime Sliding scale insulin with hypoglycemia protocol Carbohydrate consistent diet 5. GERD Continue omeprazole 6. BPH Continue tamsulosin 7. DVT prophylaxis Lovenox subcutaneous Disposition: Home when oxygen requirements reach 4L NC or lower VS, I&O, 24H, Fishbone Vital Signs/I&O Vital Signs Date Time Temp Pulse Resp B/P (MAP) Pulse Ox O2 Delivery O2 Flow Rate FiO2 03/14/20 10:09 20 03/14/20 09:25 97.4 83 126/64 (84) 87 Venturi Mask 15.0 40 I&O- Last 24 Hours up to 6 AM 03/14/20 06:00 Intake Total 750 ml Balance 750 ml Laboratory Data 24H LABS Laboratory Tests 2 03/13/20 17:59: Lactic Acid Followup at 4 Hours 2.0 03/13/20 18:00: 03/13/20 20:35: Bedside Glucose (Misc Panel) 228H 03/14/20 06:33: Immature Granulocyte % (Auto) 0.5, Neutrophils (%) (Auto) 87.1H, Lymphocytes (%) (Auto) 6.6L, Monocytes (%) (Auto) 5.6H, Eosinophils (%) (Auto) 0.1, Basophils (%) (Auto) 0.1, Neutrophils # (Auto) 6.4, Lymphocytes # (Auto) 0.5L, Monocytes # (Auto) 0.4, Eosinophils # (Auto) 0.0, Basophils # (Auto) 0.0, Nucleated Red Blood Cells % (auto) 0.0, Prothrombin Time 13.9, Prothromb Time International Ratio 1.05, Activated Partial Thromboplast Time 34.9, Fibrinogen 632H, Anion Gap 8, Glomerular Filtration Rate 52.0, Calcium Level 7.9L, Magnesium Level 1.5L, Ferritin 643H, Total Bilirubin 0.6, Direct Bilirubin 0.2, Aspartate Amino Transf (AST/SGOT) 39H, Alanine Aminotransferase (ALT/SGPT) 20, Alkaline Phosphatase 60, OZ-Fhm-A-Type Natriuretic Peptide 169, Total Protein 6.5, Albumin 2.9L, Albumin/Globulin Ratio 0.8, Procalcitonin 1.08 03/14/20 11:10: Bedside Glucose (Misc Panel) 142H CBC/BMP Laboratory Tests 03/14/20 06:33 Microbiology Microbiology 03/13/20 Blood Culture - Preliminary, Resulted No growth after 24 hours . All specim... MARNI FRIEDMAN DO Mar 14, 2020 14:42
[2020-03-14] MEDS: ATORVASTATIN 20 MG TAB PO SCH (20:24)
[2020-03-14] MEDS: atenoloL 25 MG TAB PO SCH (20:26)
[2020-03-14] MEDS: GABAPENTIN 300 MG CAP PO SCH (20:26)
[2020-03-14] MEDS: ASPIRIN 81 MG ENTERIC TAB PO SCH (20:26)
[2020-03-14] MEDS: LEVEMIR (INSULIN DETEMIR) 1 UNITS/0.01ML SC SCH (20:28)
[2020-03-14] MEDS: SODIUM CHLORIDE 0.9% INJ 10 ML SYR IV SCH (20:28)
[2020-03-15 04:00] VITALS: O2SAT 92
[2020-03-15 07:52] LABS: BASO % 0.1 % (0.0-1.0); HEMATOCRIT 36.1 % (42.0-52.0); HEMOGLOBIN 12.6 g/dl (13.5-17.5); LYMPH # 0.4 10^3/uL (1.5-5.0); LYMPH % 4.9 % (24.0-44.0); MEAN CORPUSCULAR HEMOGLOBIN 30.4 pg (27.0-33.0); MEAN CORPUSCULAR HGB CONC 34.9 g/dl (32.0-36.5); MONO # 0.4 10^3/uL (0.0-0.8); MONO % 5.3 % (0.0-5.0); NEUTROPHILS # 6.5 10^3/uL (1.5-8.5); NEUTROPHILS % 89.2 % (36.0-66.0); PLATELET COUNT, AUTOMATED 194 10^3/uL (150-450); RED BLOOD COUNT 4.15 10^6/uL (4.30-6.10); WHITE BLOOD COUNT 7.3 10^3/uL (4.0-10.0)
[2020-03-15 08:00] VITALS: BP 118/65; O2SAT 93
[2020-03-15] MEDS: FORMOTEROL FUMARATE 20 MCG/2 ML INHALATION SOLUTION (PERFOROMIST) INH SCH ×2 (08:00→18:57)
[2020-03-15] MEDS: TIOTROPIUM INHALER/CAPSULE (SPIRIVA) INH SCH (08:00)
[2020-03-15 08:13] LABS: INR 1.17; PROTHROMBIN TIME 15.2 SECONDS (12.5-14.3)
[2020-03-15 08:15] LABS: PARTIAL THROMBOPLASTIN TIME 37.3 SECONDS (24.2-38.5)
[2020-03-15 08:27] LABS: D-DIMER QUANT 702.04 ng/ml (<500)
[2020-03-15 08:36] LABS: ALBUMIN 2.9 GM/DL (3.2-5.2); BILIRUBIN,DIRECT 0.2 MG/DL (0.0-0.2); BILIRUBIN,TOTAL 0.5 MG/DL (0.2-1.0); CALCIUM LEVEL 8.4 MG/DL (8.8-10.2); CREATININE FOR GFR 1.39 MG/DL (0.70-1.30); GLOMERULAR FILTRATION RATE 52.9 (>42); MAGNESIUM LEVEL 2.1 MG/DL (1.8-2.4); POTASSIUM SERUM 4.4 MEQ/L (3.5-5.1); TOTAL PROTEIN 6.4 GM/DL (6.4-8.2)
[2020-03-15] MEDS: HumaLOG INSULIN (NovoLOG) PER UNIT SC SCH ×4 (09:03→21:59)
[2020-03-15] MEDS: ENOXAPARIN 40MG/0.4ML SYRINGE (J1650 PER 10MG) SC SCH (09:04)
[2020-03-15] MEDS: dexameTHASONE 4 MG/ML 1ML VIAL (J1100 PER 1MG) IV SCH (09:04)
[2020-03-15] MEDS: OMEPRAZOLE 20 MG CAP PO SCH (09:04)
[2020-03-15] MEDS: TAMSULOSIN 0.4 MG CAP PO SCH (09:04)
[2020-03-15] MEDS: CETIRIZINE (ZyrTEC) 10 MG TAB PO SCH (09:05)
[2020-03-15 12:00] VITALS: BP 113/59; O2SAT 94
[2020-03-15 16:00] VITALS: BP 118/67; O2SAT 89
[2020-03-15] MEDS: LevoFLOXacin IV 750 MG in IV 1 EA IV SCH (17:34)
[2020-03-15] MEDS: SODIUM CHLORIDE 0.9% INJ 10 ML SYR IV SCH (17:48)
[2020-03-15 19:38] VITALS: BP 109/56
[2020-03-15 20:00] VITALS: O2SAT 90
[2020-03-15] MEDS: atenoloL 25 MG TAB PO SCH (21:55)
[2020-03-15] MEDS: ASPIRIN 81 MG ENTERIC TAB PO SCH (21:55)
[2020-03-15] MEDS: GABAPENTIN 300 MG CAP PO SCH (21:55)
[2020-03-15] MEDS: LEVEMIR (INSULIN DETEMIR) 1 UNITS/0.01ML SC SCH (22:00)
[2020-03-15] MEDS: ATORVASTATIN 20 MG TAB PO SCH (22:02)
--- NOTE | 2020-03-15 22:43 | IPNPDOC ---
Subjective Date Seen The patient was seen on 03/15/20. Subjective Chief Complaint/HPI Mr. Richardson is a 74-year-old male with COPD and diabetes mellitus who presents for altered mental status and hypoxia. Today, he still requires 15L Ventimask. He feels comfortable, denies dyspnea or chest pain. Objective Physical Examination General Exam: Positive: Cooperative Eye Exam: Positive: EOMI; Negative: Sclera icteric ENT Exam: Positive: Atraumatic Neck Exam: Positive: Supple Chest Exam: Positive: Rhonchi Heart Exam: Positive: Rate Normal, Regular Rhythm Abdomen Exam: Positive: Normal bowel sounds, Soft, Tenderness (mild periumbilical tenderness) Extremity Exam: Negative: Edema Skin Exam: Positive: Nl turgor and temperature Neuro Exam: Positive: Cranial Nerves 3-12 NL Psych Exam: Positive: Oriented x 3 Assessment /Plan Assessment Mr. Richardson is a 74-year-old male with COPD and diabetes mellitus who presents for metabolic encephalopathy was likely secondary to COVID Pneumonia. With the elevated procalcitonin, will treat with antibiotics for CAP. Due to penicillin allergy, will used Levofloxacin. For COVID infection, he will be given dexamethasone, Remdesivir, and DVT ppx of lovenox. Cautious with Lovenox due to CKD. Plan/VTE VTE Prophylaxis Ordered?: Yes Plan 1. Metabolic encephalopathy Most likely secondary to COVID pneumonia We'll check UA as well Treat underlying cause Supportive care -Resolved 2. COVID pneumonia Hypoxic, at room air saturating between 80%-88% Dexamethasone and Remdesivir Due to chronic kidney disease, we'll do DVT prophylaxis level of Lovenox Trend inflammatory markers Since Pro calcitonin is elevated at 1.6, we'll give antibiotics 3. COPD Not an exacerbation Convert Anoro Elipta to Spiriva and Perforomist Combivent as needed pressure is of breath or wheezing 4. Diabetes mellitus Since on carb consistent diet, we'll decrease his basal insulin from 50 units at bedtime to 25 units at bedtime Sliding scale insulin with hypoglycemia protocol Carbohydrate consistent diet 5. GERD Continue omeprazole 6. BPH Continue tamsulosin 7. DVT prophylaxis Lovenox subcutaneous Disposition: Home when oxygen requirements reach 4L NC or lower VS, I&O, 24H, Fishbone Vital Signs/I&O Vital Signs Date Time Temp Pulse Resp B/P (MAP) Pulse Ox O2 Delivery O2 Flow Rate FiO2 03/15/20 22:10 15.0 50 03/15/20 21:55 66 109/56 03/15/20 20:00 90 Venturi Mask 03/15/20 19:38 97.1 22 I&O- Last 24 Hours up to 6 AM 03/15/20 06:00 Intake Total 1500 ml Balance 1500 ml Laboratory Data 24H LABS Laboratory Tests 2 03/15/20 07:19: Immature Granulocyte % (Auto) 0.5, Neutrophils (%) (Auto) 89.2H, Lymphocytes (%) (Auto) 4.9L, Monocytes (%) (Auto) 5.3H, Eosinophils (%) (Auto) 0.0, Basophils (%) (Auto) 0.1, Neutrophils # (Auto) 6.5, Lymphocytes # (Auto) 0.4L, Monocytes # (Auto) 0.4, Eosinophils # (Auto) 0.0, Basophils # (Auto) 0.0, Nucleated Red Blood Cells % (auto) 0.0, Prothrombin Time 15.2H, Prothromb Time International Ratio 1.17, Activated Partial Thromboplast Time 37.3, Fibrinogen 565H, D-Dimer, Quantitative 702.04H, Anion Gap 7L, Glomerular Filtration Rate 52.9, Calcium Level 8.4L, Magnesium Level 2.1, Ferritin 679H, Total Bilirubin 0.5, Direct Bilirubin 0.2, Aspartate Amino Transf (AST/SGOT) 37, Alanine Aminotransferase (ALT/SGPT) 19, Alkaline Phosphatase 62, VY-Zyc-O-Type Natriuretic Peptide 419, Total Protein 6.4, Albumin 2.9L, Albumin/Globulin Ratio 0.8, Procalcitonin 0.55 03/15/20 11:14: Bedside Glucose (Misc Panel) 172H 03/15/20 16:32: Bedside Glucose (Misc Panel) 261H 03/15/20 21:54: Bedside Glucose (Misc Panel) 300H CBC/BMP Laboratory Tests 03/15/20 07:19 Microbiology Microbiology 03/13/20 Blood Culture - Preliminary, Resulted No Growth after 48 hours. All Specime... MARNI FRIEDMAN DO Mar 15, 2020 22:43
[2020-03-16] VITALS (12 sets, daily range): BP systolic 100–116; BP diastolic 53–64; O2SAT 85–96
[2020-03-16] MEDS: traMADol 50 MG TAB PO PRN ×2 (00:23→09:04)
[2020-03-16] MEDS: HumaLOG INSULIN (NovoLOG) PER UNIT SC SCH ×4 (07:30→20:23)
[2020-03-16 07:59] LABS: BASO % 0.1 % (0.0-1.0); HEMATOCRIT 39.5 % (42.0-52.0); LYMPH # 0.6 10^3/uL (1.5-5.0); LYMPH % 4.5 % (24.0-44.0); MEAN CORPUSCULAR HEMOGLOBIN 29.1 pg (27.0-33.0); MEAN CORPUSCULAR HGB CONC 32.9 g/dl (32.0-36.5); MEAN CORPUSCULAR VOLUME 88.4 fl (80.0-96.0); MONO # 0.4 10^3/uL (0.0-0.8); MONO % 2.9 % (0.0-5.0); NEUTROPHILS # 11.5 10^3/uL (1.5-8.5); PLATELET COUNT, AUTOMATED 245 10^3/uL (150-450); RED BLOOD COUNT 4.47 10^6/uL (4.30-6.10); WHITE BLOOD COUNT 12.5 10^3/uL (4.0-10.0)
[2020-03-16] MEDS: FORMOTEROL FUMARATE 20 MCG/2 ML INHALATION SOLUTION (PERFOROMIST) INH SCH ×2 (08:00→20:00)
[2020-03-16] MEDS: TIOTROPIUM INHALER/CAPSULE (SPIRIVA) INH SCH (08:00)
[2020-03-16 08:17] LABS: ALBUMIN 2.9 GM/DL (3.2-5.2); BILIRUBIN,DIRECT 0.1 MG/DL (0.0-0.2); BILIRUBIN,TOTAL 0.5 MG/DL (0.2-1.0); CALCIUM LEVEL 9.2 MG/DL (8.8-10.2); CREATININE FOR GFR 1.37 MG/DL (0.70-1.30); GLOMERULAR FILTRATION RATE 53.8 (>42); MAGNESIUM LEVEL 1.9 MG/DL (1.8-2.4); POTASSIUM SERUM 4.3 MEQ/L (3.5-5.1); TOTAL PROTEIN 7.1 GM/DL (6.4-8.2)
[2020-03-16] MEDS: CETIRIZINE (ZyrTEC) 10 MG TAB PO SCH (08:50)
[2020-03-16] MEDS: OMEPRAZOLE 20 MG CAP PO SCH (08:50)
[2020-03-16] MEDS: TAMSULOSIN 0.4 MG CAP PO SCH (08:51)
[2020-03-16] MEDS: dexameTHASONE 4 MG/ML 1ML VIAL (J1100 PER 1MG) IV SCH (08:52)
[2020-03-16] MEDS: ENOXAPARIN 40MG/0.4ML SYRINGE (J1650 PER 10MG) SC SCH (08:53)
[2020-03-16 08:54] LABS: INR 1.12; PROTHROMBIN TIME 14.6 SECONDS (12.5-14.3)
[2020-03-16 13:06] LABS: MYCOPLASMA PNEUMONIAE IgG 2421 U/mL (0-99); MYCOPLASMA PNEUMONIAE IgM <770 U/mL (0-769)
[2020-03-16] MEDS: SODIUM CHLORIDE 0.9% INJ 10 ML SYR IV SCH (17:40)
[2020-03-16] MEDS: REMDESIVIR 100 MG in NS 250 ML IV SCH (17:42)
--- NOTE | 2020-03-16 18:35 | IPNPDOC ---
Subjective Date Seen The patient was seen on 03/16/20. Subjective Chief Complaint/HPI OBJECTIVE: Pt seen at bedside and examined. Pt had no acute events overnight. inflammatory markers also improving. Pt is anxiously waiting to go home when i spoke with him this morning. AAOx3 this am; denies CP, abd pain, fever, chills. PHYSICAL EXAM VS: see below. vapotherm 100%FIO2 satting 91% this am Constitutional: Awake and alert, in no apparent distress ENT: Sclera are clear. Mucosa is moist. Respiratory: mild expiratory rales in L Lower lobes and on R side. Able to speak in full sentences w/o being sob. No accessory muscle use. Cardiovascular: Regular heart rate no murmurs Gastrointestinal: Abdomen is soft, non distended, non tender, BS present. Musculoskeletal: No lower extremity edema. R Neurologic: No focal neurological deficit. AAO x3, normal affect Skin: Warm, dry, no cyanosis or clubbing ASSESSMENT AND PLAN: Mr. Richardson is a 74-year-old male with COPD and diabetes mellitus who presents for metabolic encephalopathy was likely secondary to COVID Pneumonia. With the elevated procalcitonin, will treat with antibiotics for CAP. Due to penicillin allergy, will used Levofloxacin. For COVID infection, he will be given dexamethasone, Remdesivir, and DVT ppx of lovenox. Cautious with Lovenox due to CKD. # COVID pneumonia Currently vapotherm 100% FIO2 satting 91% c/w Dexamethasone and Remdesivir Due to CKD, lovenox prophalytic dose for anticoag c/w trending inflammatory markers c/w with abx - will re-order procal to de-escalate abx #COPD (not in exacerbation) Pt takes Anoro Elipta as home regimen - Will switch to Spiriva and Perforomist c/w Combivent PRN #NIDDM c/w 25 units basal insulin Sliding scale insulin with hypoglycemia protocol Carbohydrate consistent diet #GERD C/w omeprazole #BPH C/w tamsulosin DVT ppx: Lovenox GI ppx: omeprazole Fluids:none Diet: consistent carb Code status: DNR/DNI Disposition: Home when oxygen requirements reach 4L NC or lower Objective Physical Examination General Exam: Positive: Cooperative Eye Exam: Positive: EOMI; Negative: Sclera icteric ENT Exam: Positive: Atraumatic Neck Exam: Positive: Supple Chest Exam: Positive: Rhonchi Heart Exam: Positive: Rate Normal, Regular Rhythm Abdomen Exam: Positive: Normal bowel sounds, Soft, Tenderness (mild periumbilical tenderness) Extremity Exam: Negative: Edema Skin Exam: Positive: Nl turgor and temperature Neuro Exam: Positive: Cranial Nerves 3-12 NL Psych Exam: Positive: Oriented x 3 Assessment /Plan Plan/VTE VTE Prophylaxis Ordered?: Yes VS, I&O, 24H, Fishbone Vital Signs/I&O Vital Signs Date Time Temp Pulse Resp B/P (MAP) Pulse Ox O2 Delivery O2 Flow Rate FiO2 03/16/20 12:00 98.1 84 106/57 (73) 89 HVNI-Vapotherm 40.0 100 03/16/20 09:34 20 I&O- Last 24 Hours up to 6 AM 03/16/20 06:00 Intake Total 1570 ml Balance 1570 ml Laboratory Data 24H LABS Laboratory Tests 2 03/15/20 16:32: Bedside Glucose (Misc Panel) 261H 03/15/20 21:54: Bedside Glucose (Misc Panel) 300H 03/16/20 06:23: Immature Granulocyte % (Auto) 0.5, Neutrophils (%) (Auto) 92.0H, Lymphocytes (%) (Auto) 4.5L, Monocytes (%) (Auto) 2.9, Eosinophils (%) (Auto) 0.0, Basophils (%) (Auto) 0.1, Neutrophils # (Auto) 11.5H, Lymphocytes # (Auto) 0.6L, Monocytes # (Auto) 0.4, Eosinophils # (Auto) 0.0, Basophils # (Auto) 0.0, Nucleated Red Blood Cells % (auto) 0.0, Prothrombin Time 14.6H, Prothromb Time International Ratio 1.12, Activated Partial Thromboplast Time 35.0, Fibrinogen 462H, Anion Gap 9, Glomerular Filtration Rate 53.8, Calcium Level 9.2, Magnesium Level 1.9, Ferritin 700H, Total Bilirubin 0.5, Direct Bilirubin 0.1, Aspartate Amino Transf (AST/SGOT) 33, Alanine Aminotransferase (ALT/SGPT) 19, Alkaline Phosphatase 64, AW-Mzx-D-Type Natriuretic Peptide 665H, Total Protein 7.1, Albumin 2.9L, Albumin /Globulin Ratio 0.7, Procalcitonin 0.31 03/16/20 12:16: Bedside Glucose (Misc Panel) 177H 03/16/20 15:52: Bedside Glucose (Misc Panel) 231H CBC/BMP Laboratory Tests 03/16/20 06:23 Microbiology Microbiology 03/13/20 Blood Culture - Preliminary, Resulted No Growth after 72 hours. All specime... GME ATTESTATION GME ATTESTATION My faculty preceptor for this patient encounter was physically present during the encounter and was fully available. All aspects of the patient interview, examination, medical decision making process, and medical care plan development were reviewed and approved by the faculty preceptor. The faculty preceptor is aware and concurs with the plan as stated in the body of this note and will attest to such by his/her cosignature. ATTENDING NOTE I, Mamadou Lyle MD, have independently examined this patient and performed my own physical exam, as well as reviewed the documentation and edited where necessary. I have discussed in detail with the resident / student the findings and plan of treatment as documented by the resident / student and edited their note. I agree with their findings and treatment plan and have edited their documentation. Tessa Cooley DO Mar 16, 2020 16:48 MAMADOU LYLE MD Mar 20, 2020 14:57
[2020-03-16] MEDS: atenoloL 25 MG TAB PO SCH (20:23)
[2020-03-16] MEDS: GABAPENTIN 300 MG CAP PO SCH (20:23)
[2020-03-16] MEDS: ASPIRIN 81 MG ENTERIC TAB PO SCH (20:23)
[2020-03-16] MEDS: ATORVASTATIN 20 MG TAB PO SCH (20:23)
[2020-03-16] MEDS: LEVEMIR (INSULIN DETEMIR) 1 UNITS/0.01ML SC SCH (20:24)
[2020-03-17 04:18] VITALS: BP 119/51; O2SAT 88
[2020-03-17] MEDS ORDERED: ACETAMINOPHEN TAB 650MG DOSE (2X325MG) As Ordered ONE (06:05)
[2020-03-17] MEDS: ACETAMINOPHEN TAB 650MG DOSE (2X325MG) PO PRN ×2 (06:10→21:19)
[2020-03-17 07:48] LABS: BASO % 0.2 % (0.0-1.0); EOS % 0.1 % (0.0-3.0); HEMOGLOBIN 12.1 g/dl (13.5-17.5); LYMPH # 0.5 10^3/uL (1.5-5.0); LYMPH % 4.6 % (24.0-44.0); MEAN CORPUSCULAR HEMOGLOBIN 29.1 pg (27.0-33.0); MEAN CORPUSCULAR HGB CONC 33.6 g/dl (32.0-36.5); MEAN CORPUSCULAR VOLUME 86.5 fl (80.0-96.0); MONO # 0.2 10^3/uL (0.0-0.8); MONO % 1.4 % (0.0-5.0); NEUTROPHILS # 9.6 10^3/uL (1.5-8.5); NEUTROPHILS % 93.1 % (36.0-66.0); PLATELET COUNT, AUTOMATED 243 10^3/uL (150-450); RED BLOOD COUNT 4.16 10^6/uL (4.30-6.10); WHITE BLOOD COUNT 10.4 10^3/uL (4.0-10.0)
[2020-03-17 07:50] LABS: INR 1.19; PROTHROMBIN TIME 15.4 SECONDS (12.5-14.3)
[2020-03-17 07:52] LABS: PARTIAL THROMBOPLASTIN TIME 30.9 SECONDS (24.2-38.5)
[2020-03-17] MEDS: FORMOTEROL FUMARATE 20 MCG/2 ML INHALATION SOLUTION (PERFOROMIST) INH SCH (07:53)
[2020-03-17] MEDS: TIOTROPIUM INHALER/CAPSULE (SPIRIVA) INH SCH (07:54)
[2020-03-17 08:00] VITALS: BP 100/54; O2SAT 91
[2020-03-17 08:13] LABS: ALBUMIN 2.5 GM/DL (3.2-5.2); BILIRUBIN,DIRECT 0.3 MG/DL (0.0-0.2); CALCIUM LEVEL 8.8 MG/DL (8.8-10.2); CREATININE FOR GFR 1.33 MG/DL (0.70-1.30); GLOMERULAR FILTRATION RATE 55.7 (>42); MAGNESIUM LEVEL 1.6 MG/DL (1.8-2.4); POTASSIUM SERUM 3.8 MEQ/L (3.5-5.1); TOTAL PROTEIN 6.7 GM/DL (6.4-8.2)
[2020-03-17] MEDS: HumaLOG INSULIN (NovoLOG) PER UNIT SC SCH ×4 (09:55→21:00)
[2020-03-17] MEDS: ENOXAPARIN 40MG/0.4ML SYRINGE (J1650 PER 10MG) SC SCH ×2 (09:59→21:18)
[2020-03-17] MEDS: OMEPRAZOLE 20 MG CAP PO SCH (10:00)
[2020-03-17] MEDS: CETIRIZINE (ZyrTEC) 10 MG TAB PO SCH (10:00)
[2020-03-17] MEDS: TAMSULOSIN 0.4 MG CAP PO SCH (10:00)
[2020-03-17] MEDS ORDERED: FUROSEMIDE 20MG/2ML VIAL (J1940) IV ONE (10:30)
[2020-03-17] MEDS ORDERED: dexameTHASONE 20MG/5ML VIAL (J1100 PER 1MG) IV SCH (11:00)
[2020-03-17 12:00] VITALS: BP 94/48; O2SAT 92
[2020-03-17] MEDS: LevoFLOXacin 750 MG TABLET PO SCH (12:48)
--- NOTE | 2020-03-17 14:17 | IPNPDOC ---
Subjective Date Seen The patient was seen on 03/17/20. Subjective Chief Complaint/HPI SUBJECTIVE: Pt seen at bedside and examined. Pt continues to require vapotherm and not improving or able to be weaned off O2. Attending physician (Dr. Lyle) personally spoke to patient about proning and the benefits of it, but patient is not interested. He's fully alert and oriented x3 this am. He refuses BIPAP as well. All risks and benefits have been discussed and patient verbalizes that they understand the risks of refusing further interventions. Comfort measure conversation has been attempted however, pt refused to talk and states t hat he wants to be left alone. OBJECTIVE: PHYSICAL EXAM VS: see below. vapotherm 100% satting 88% Constitutional: Awake and alert x3, mild respiratory distress ENT: Sclera are clear. Mucosa is moist. Respiratory: tachypneic, and mild respiratory distress Cardiovascular: Regular heart rate no murmurs. no peripheral edema appreciated Gastrointestinal: Abdomen is soft, non distended, non tender, BS present. Musculoskeletal: No lower extremity edema. R Neurologic: No focal neurological deficit. AAO x3, normal affect Skin: Warm, dry, no cyanosis or clubbing ASSESSMENT AND PLAN: Mr. Richardson is a 74-year-old male with COPD and diabetes mellitus who presents for metabolic encephalopathy was likely secondary to COVID Pneumonia. With the elevated procalcitonin, will treat with antibiotics for CAP. Due to penicillin allergy, will used Levofloxacin. For COVID infection, he will be given de xamethasone, Remdesivir, and DVT ppx of lovenox and admitted for further mgmt and care. # Acute hypoxic respiratory failure 2/2 COVID pneumonia Currently vapotherm 100% FIO2 satting 88% - Pt is non-compliant with proning and refuses proning c/w Dexamethasone 6mg IV BID and Remdesivir Due to CKD, lovenox prophalytic dose for anticoag c/w trending inflammatory markers c/w with abx - Will incr lovenox to BID #COPD (not in exacerbation) Pt takes Anoro Elipta as home regimen - C/w Spiriva and Perforomist c/w Combivent PRN #NIDDM c/w 25 units basal insulin Sliding scale insulin with hypoglycemia protocol Carbohydrate consistent diet #GERD C/w omeprazole #BPH C/w tamsulosin DVT ppx: Lovenox BID GI ppx: omeprazole Fluids:none Diet: consistent carb Code status: DNR/DNI Disposition: With patient refusing proning and other interventions, he's likely to decompensate and get worse. Will bring up CUTTING SUPERVISOR measures again tomorrow if patient cooperates by then. ADDENDUM: At 2:45pm, Pt's family ( Carlee Richardson) was called and updated on his hospital course and his condition. Dr. Lyle with the nurse as witness at bedside, spoke with the patient about Comfort measures. Objective Physical Examination General Exam: Positive: Cooperative Eye Exam: Positive: EOMI; Negative: Sclera icteric ENT Exam: Positive: Atraumatic Neck Exam: Positive: Supple Chest Exam: Positive: Rhonchi Heart Exam: Positive: Rate Normal, Regular Rhythm Abdomen Exam: Positive: Normal bowel sounds, Soft, Tenderness (mild periumbilical tenderness) Extremity Exam: Negative: Edema Skin Exam: Positive: Nl turgor and temperature Neuro Exam: Positive: Cranial Nerves 3-12 NL Psych Exam: Positive: Oriented x 3 Assessment /Plan Plan/VTE VTE Prophylaxis Ordered?: Yes VS, I&O, 24H, Fishbone Vital Signs/I&O Vital Signs Date Time Temp Pulse Resp B/P (MAP) Pulse Ox O2 Delivery O2 Flow Rate FiO2 03/17/20 12:00 92 HVNI-Vapotherm 40.0 100 03/17/20 08:00 99.2 81 25 100/54 (69) I&O- Last 24 Hours up to 6 AM 03/17/20 06:00 Intake Total 2880 ml Output Total 950 ml Balance 1930 ml Laboratory Data 24H LABS Laboratory Tests 2 03/16/20 15:52: Bedside Glucose (Misc Panel) 231H 03/16/20 20:21: Bedside Glucose (Misc Panel) 281H 03/17/20 06:59: Immature Granulocyte % (Auto) 0.6, Neutrophils (%) (Auto) 93.1H, Lymphocytes (%) (Auto) 4.6L, Monocytes (%) (Auto) 1.4, Eosinophils (%) (Auto) 0.1, Basophils (%) (Auto) 0.2, Neutrophils # (Auto) 9.6H, Lymphocytes # (Auto) 0.5L, Monocytes # (Auto) 0.2, Eosinophils # (Auto) 0.0, Basophils # (Auto) 0.0, Nucleated Red Blood Cells % (auto) 0.0, Prothrombin Time 15.4H, Prothromb Time International Ratio 1.19, Activated Partial Thromboplast Time 30.9, Fibrinogen 616H, Anion Gap 8, Glomerular Filtration Rate 55.7, Calcium Level 8.8, Magnesium Level 1.6L, Ferritin 650H, Total Bilirubin 1.0#, Direct Bilirubin 0.3H, Aspartate Amino Transf (AST/SGOT) 31, Alanine Aminotransferase (ALT/SGPT) 14, Alkaline Phosphatase 61, PC-Rae-R-Type Natriuretic Peptide 871H, Total Protein 6.7, Albumin 2.5L, Albumin/Globulin Ratio 0.6, Procalcitonin 0.39 03/17/20 11:01: Bedside Glucose (Misc Panel) 127H CBC/BMP Laboratory Tests 03/17/20 06:59 Microbiology Microbiology 03/13/20 Blood Culture - Preliminary, Resulted No Growth after 72 hours. All specime... GME ATTESTATION GME ATTESTATION My faculty preceptor for this patient encounter was physically present during the encounter and was fully available. All aspects of the patient interview, examination, medical decision making process, and medical care plan development were reviewed and approved by the faculty preceptor. The faculty preceptor is aware and concurs with the plan as stated in the body of this note and will attest to such by his/her cosignature. ATTENDING NOTE I, Ramakrishna Lyle MD, have independently examined this patient and performed my own physical exam, as well as reviewed the documentation and edited where necessary. I have discussed in detail with the resident / student the findings and plan of treatment as documented by the resident / student and edited their note. I agree with their findings and treatment plan and have edited their documentation. Tessa Cooley DO Mar 17, 2020 13:58 RAMAKRISHNA LYLE MD Mar 20, 2020 14:58
[2020-03-17] MEDS ORDERED: SCOPOLAMINE 1MG TRANSDERMAL PATCH TOP PRN (14:45)
[2020-03-17] MEDS ORDERED: LORazepam 1 MG TAB PO PRN (14:45)
[2020-03-17 16:00] VITALS: BP 103/72; O2SAT 85
[2020-03-17] MEDS: REMDESIVIR 100 MG in NS 250 ML IV SCH (18:57)
[2020-03-17] MEDS: SODIUM CHLORIDE 0.9% INJ 10 ML SYR IV SCH (18:58)
[2020-03-17] MEDS: traMADol 50 MG TAB PO PRN (18:59)
[2020-03-17 20:00] VITALS: O2SAT 90
[2020-03-17] MEDS: dexameTHASONE 4 MG/ML 1ML VIAL (J1100 PER 1MG) IV SCH (21:18)
[2020-03-17] MEDS: GABAPENTIN 300 MG CAP PO SCH (21:18)
[2020-03-17] MEDS: ASPIRIN 81 MG ENTERIC TAB PO SCH (21:18)
[2020-03-17] MEDS: ATORVASTATIN 20 MG TAB PO SCH (21:18)
[2020-03-17] MEDS: LEVEMIR (INSULIN DETEMIR) 1 UNITS/0.01ML SC SCH (21:18)
[2020-03-17 21:21] VITALS: BP 146/67
[2020-03-17] MEDS: atenoloL 25 MG TAB PO SCH (21:30)
[2020-03-18] VITALS (15 sets, daily range): BP systolic 86–115; BP diastolic 50–67; O2SAT 88–97
[2020-03-18] MEDS: FORMOTEROL FUMARATE 20 MCG/2 ML INHALATION SOLUTION (PERFOROMIST) INH SCH ×3 (04:11→20:00)
[2020-03-18 05:17] LABS: BASO % 0.1 % (0.0-1.0); LYMPH # 0.3 10^3/uL (1.5-5.0); LYMPH % 3.8 % (24.0-44.0); MEAN CORPUSCULAR HGB CONC 33.3 g/dl (32.0-36.5); MONO # 0.1 10^3/uL (0.0-0.8); MONO % 1.1 % (0.0-5.0); NEUTROPHILS # 7.5 10^3/uL (1.5-8.5); NEUTROPHILS % 94.4 % (36.0-66.0); PLATELET COUNT, AUTOMATED 231 10^3/uL (150-450); RED BLOOD COUNT 4.14 10^6/uL (4.30-6.10)
[2020-03-18 05:53] LABS: ALBUMIN 2.5 GM/DL (3.2-5.2); BILIRUBIN,DIRECT 0.3 MG/DL (0.0-0.2); BILIRUBIN,TOTAL 0.7 MG/DL (0.2-1.0); CALCIUM LEVEL 8.1 MG/DL (8.8-10.2); CREATININE FOR GFR 1.46 MG/DL (0.70-1.30); MAGNESIUM LEVEL 1.7 MG/DL (1.8-2.4); POTASSIUM SERUM 4.5 MEQ/L (3.5-5.1); TOTAL PROTEIN 6.1 GM/DL (6.4-8.2)
[2020-03-18 05:57] LABS: INR 1.42; PROTHROMBIN TIME 17.7 SECONDS (12.5-14.3)
[2020-03-18 05:59] LABS: PARTIAL THROMBOPLASTIN TIME 41.9 SECONDS (24.2-38.5)
[2020-03-18] MEDS: TIOTROPIUM INHALER/CAPSULE (SPIRIVA) INH SCH (08:00)
[2020-03-18 08:28] LABS: D-DIMER QUANT 1732.91 ng/ml (<500)
[2020-03-18] MEDS: HumaLOG INSULIN (NovoLOG) PER UNIT SC SCH ×4 (08:51→21:00)
[2020-03-18] MEDS: dexameTHASONE 4 MG/ML 1ML VIAL (J1100 PER 1MG) IV SCH ×2 (08:53→20:50)
[2020-03-18] MEDS: ENOXAPARIN 40MG/0.4ML SYRINGE (J1650 PER 10MG) SC SCH ×2 (08:53→20:50)
[2020-03-18] MEDS: OMEPRAZOLE 20 MG CAP PO SCH (08:53)
[2020-03-18] MEDS: TAMSULOSIN 0.4 MG CAP PO SCH (08:53)
[2020-03-18] MEDS: CETIRIZINE (ZyrTEC) 10 MG TAB PO SCH (08:53)
--- NOTE | 2020-03-18 09:56 | REP ---
INDICATION: hypoxia covid + COMPARISON: 03/13/2020 TECHNIQUE: Portable AP view of the chest FINDINGS: The mediastinum and cardiac silhouette are stable and within normal limits for portable technique. The lung flor demonstrate stable chronic appearing interstitial changes. Subtle superimposed atelectasis cannot be excluded. No significant discrete focal consolidation, effusion, or pneumothorax identified. Skeletal structures are intact. IMPRESSION: Stable chronic appearing changes. No obvious focal consolidation or effusion. Cannot exclude subtle superimposed atelectasis. <Electronically signed by Ramón Barragan > 03/18/20 0952
[2020-03-18] MEDS: MAG SULF 1GM/100ML (MAG RUN) 1 GM in IV 1 EA IV SCH ×4 (10:52→13:55)
[2020-03-18] MEDS: SODIUM CHLORIDE 0.9% INJ 10 ML SYR IV SCH (17:39)
[2020-03-18] MEDS: REMDESIVIR 100 MG in NS 250 ML IV SCH (17:39)
--- NOTE | 2020-03-18 18:49 | IPNPDOC ---
Subjective Date Seen The patient was seen on 03/18/20. Subjective Chief Complaint/HPI SUBJECTIVE: Overnight team (Dr. Martinez) was called to patient's room due desaturations to the 70s. After much discussion, pt is agreeable to try BIPAP and he was subsequently transferred to the ICU and started on BIPAP and consulted pulmonology for further recommendations in terms of mgmt. This am, he's NAD, sitting up in his bed and being very compliant with his BIPAP. He states that he feels much better and denies CP, sob, abdominal pain, n/v/d. OBJECTIVE: PHYSICAL EXAM VS: see below. BIPAP 02/15 satting above 90% Constitutional: Awake and alert x3, NAD, able to speak in full sentences without desaturations or sob ENT: Sclera are clear. Mucosa is moist. Respiratory: decreased breath sounds in bilateral lung bases; unable to ap preciate wheezing, rales Cardiovascular: Regular heart rate no murmurs. no peripheral edema appreciated Gastrointestinal: Abdomen is soft, non distended, non tender, BS present. Musculoskeletal: No lower extremity edema appreciated; non tender on palpation Neurologic: No focal neurological deficit. AAO x3, normal affect Skin: Warm, dry, no cyanosis or clubbing ASSESSMENT AND PLAN: This is a 74-year-old male with a PMHx significant for COPD and NIDDM, who presents to [facility] ER with altered mental status and shortness of breath. Pt is a bad historian and most of the history was gathered from patient's . According to her, patient was exposed to his daughter who was COVID positive. He was tested for COVID on 03/04 and the results were positive; however, he was asymptomatic until 03/08/2020 when he started feeling more confused and progressively more lethargic and weak. He also Pt reports that he's also had a decreased appetite since his symptoms started and reports occassional coughs which causes some sharp chest pain. In the ED, he was satting between 80-88% on RA and required 3L NC to maintain saturations above 88%. He initially had an elevated procal and XR chest shows chronic lower lobe airspace disease. During his hospitalization, pt continues to require more oxygenation and maxed out on vapotherm and after having many talks with the patient as well as his about his treatment options, he agreed to try on BIPAP and was thereafter transferred to the ICU. Will order a portable XR to see progression of his PNA. # Acute hypoxic respiratory failure 2/2 COVID pneumonia Currently on BIPAP maintaining sats ; will try to transition to Vapotherm as tolerated - Pt is non-compliant with proning - repeat portable XR today - pending results - Will continue to trend inflammatory markers c/w Dexamethasone 6mg IV BID and Remdesivir - Therapuetic dose of lovenox c/w with abx levaquin - Pulmonology (Dr. Gifford) consulted- greatly appreciate further recommendations #COPD (not in exacerbation) Pt takes Anoro Elipta as home regimen - C/w Spiriva and Perforomist c/w Combivent PRN #NIDDM c/w 25 units basal insulin Sliding scale insulin with +FSBS + hypoglycemia protocol Carbohydrate consistent diet #GERD C/w omeprazole #BPH C/w tamsulosin DVT ppx: Lovenox BID GI ppx: omeprazole Fluids:none Diet: consistent carb Code status: DNR/DNI Disposition: Pt's condition is guarded, although he's now agreeable to BIPAP and has been satting above 90%. Pending repeat portable CXR. Pulm consult- appreciate recs Objective Physical Examination General Exam: Positive: Cooperative Eye Exam: Positive: EOMI; Negative: Sclera icteric ENT Exam: Positive: Atraumatic Neck Exam: Positive: Supple Chest Exam: Positive: Rhonchi Heart Exam: Positive: Rate Normal, Regular Rhythm Abdomen Exam: Positive: Normal bowel sounds, Soft, Tenderness (mild periumbilical tenderness) Extremity Exam: Negative: Edema Skin Exam: Positive: Nl turgor and temperature Neuro Exam: Positive: Cranial Nerves 3-12 NL Psych Exam: Positive: Oriented x 3 Assessment /Plan Plan/VTE VTE Prophylaxis Ordered?: Yes VS, I&O, 24H, Fishbone Vital Signs/I&O Vital Signs Date Time Temp Pulse Resp B/P (MAP) Pulse Ox O2 Delivery O2 Flow Rate FiO2 03/18/20 17:02 92 HVNI-Vapotherm 40.0 100 03/18/20 10:00 73 20 102/59 (73) 03/18/20 08:00 97.5 I&O- Last 24 Hours up to 6 AM 03/18/20 06:00 Intake Total 1680 ml Output Total 750 ml Balance 930 ml Laboratory Data 24H LABS Laboratory Tests 2 03/17/20 20:46: Bedside Glucose (Misc Panel) 159H 03/18/20 04:48: Immature Granulocyte % (Auto) 0.6, Neutrophils (%) (Auto) 94.4H, Lymphocytes (%) (Auto) 3.8L, Monocytes (%) (Auto) 1.1, Eosinophils (%) (Auto) 0.0, Basophils (%) (Auto) 0.1, Neutrophils # (Auto) 7.5, Lymphocytes # (Auto) 0.3L, Monocytes # (Auto) 0.1, Eosinophils # (Auto) 0.0, Basophils # (Auto) 0.0, Nucleated Red Blood Cells % (auto) 0.0, Prothrombin Time 17.7H, Prothromb Time International Ratio 1.42, Activated Partial Thromboplast Time 41.9H, Fibrinogen 667H, D-Dimer, Quantitative 1732.91H, Anion Gap 9, Glomerular Filtration Rate 50.0, Calcium Level 8.1L, Magnesium Level 1.7L, Ferritin 792H, Total Bilirubin 0.7, Direct Bilirubin 0.3H, Aspartate Amino Transf (AST/SGOT) 36, Alanine Aminotransferase (ALT/SGPT) 16, Alkaline Phosphatase 59, MR-Tje-Y-Type Natriuretic Peptide 674H, Total Protein 6.1L, Albumin 2.5L, Albumin/Globulin Ratio 0.7, Procalcitonin 2.79 03/18/20 08:46: Bedside Glucose (Misc Panel) 143H 03/18/20 11:42: Bedside Glucose (Misc Panel) 197H 03/18/20 13:14: Magnesium Level 3.0H 03/18/20 17:10: Bedside Glucose (Misc Panel) 261H CBC/BMP Laboratory Tests 03/18/20 04:48 Microbiology Microbiology 03/13/20 Blood Culture - Final, Complete NO GROWTH AFTER 5 DAYS GME ATTESTATION GME ATTESTATION My faculty preceptor for this patient encounter was physically present during the encounter and was fully available. All aspects of the patient interview, examination, medical decision making process, and medical care plan development were reviewed and approved by the faculty preceptor. The faculty preceptor is aware and concurs with the plan as stated in the body of this note and will attest to such by his/her cosignature. ATTENDING NOTE I, Mamadou Wyman MD, have independently examined this patient and performed my own physical exam, as well as reviewed the documentation and edited where necessary. I have discussed in detail with the resident / student the findings and plan of treatment as documented by the resident / student and edited their note. I agree with their findings and treatment plan and have edited their documentation. Tessa Cooley DO Mar 18, 2020 18:20 MAMADOU WYMAN MD Mar 20, 2020 14:58
[2020-03-18] MEDS: ATORVASTATIN 20 MG TAB PO SCH (20:50)
[2020-03-18] MEDS: ASPIRIN 81 MG ENTERIC TAB PO SCH (20:50)
[2020-03-18] MEDS: GABAPENTIN 300 MG CAP PO SCH (20:50)
[2020-03-18] MEDS: LEVEMIR (INSULIN DETEMIR) 1 UNITS/0.01ML SC SCH (20:51)
[2020-03-18] MEDS: atenoloL 25 MG TAB PO SCH (21:00)
[2020-03-19] VITALS (8 sets, daily range): BP systolic 97–125; BP diastolic 53–71; O2SAT 87–97
[2020-03-19] MEDS: traMADol 50 MG TAB PO PRN (01:21)
[2020-03-19 05:11] LABS: HEMATOCRIT 36.5 % (42.0-52.0); HEMOGLOBIN 12.4 g/dl (13.5-17.5); LYMPH # 0.3 10^3/uL (1.5-5.0); LYMPH % 2.7 % (24.0-44.0); MEAN CORPUSCULAR HEMOGLOBIN 29.6 pg (27.0-33.0); MEAN CORPUSCULAR VOLUME 87.1 fl (80.0-96.0); MONO # 0.2 10^3/uL (0.0-0.8); MONO % 1.8 % (0.0-5.0); NEUTROPHILS # 8.7 10^3/uL (1.5-8.5); NEUTROPHILS % 95.1 % (36.0-66.0); PLATELET COUNT, AUTOMATED 243 10^3/uL (150-450); RED BLOOD COUNT 4.19 10^6/uL (4.30-6.10); WHITE BLOOD COUNT 9.1 10^3/uL (4.0-10.0)
[2020-03-19 05:38] LABS: ALBUMIN 2.4 GM/DL (3.2-5.2); ALT/SGPT 18 U/L (12-78); BILIRUBIN,DIRECT 0.3 MG/DL (0.0-0.2); BILIRUBIN,TOTAL 0.6 MG/DL (0.2-1.0); BLOOD UREA NITROGEN 50 MG/DL (7-18); CARBON DIOXIDE LEVEL 20 MEQ/L (21-32); CHLORIDE LEVEL 109 MEQ/L (98-107); CPK CREATINE PHOSPHOKINASE 82 U/L (39-308); CREATININE FOR GFR 1.34 MG/DL (0.70-1.30); FERRITIN 1018 NG/ML (26-388); GLOMERULAR FILTRATION RATE 55.2 (>42); GLUCOSE, FASTING 279 MG/DL (70-100); LDH LACTATE DEHYDROGENASE 711 U/L (87-241); POTASSIUM SERUM 4.1 MEQ/L (3.5-5.1); SODIUM LEVEL 137 MEQ/L (136-145); TROPONIN I < 0.02 NG/ML (< 0.10)
[2020-03-19 05:39] LABS: INR 1.37; PROTHROMBIN TIME 17.2 SECONDS (12.5-14.3)
[2020-03-19 05:40] LABS: PARTIAL THROMBOPLASTIN TIME 41.6 SECONDS (24.2-38.5)
[2020-03-19 05:43] LABS: D-DIMER QUANT 956.77 ng/ml (<500)
[2020-03-19] MEDS: LevoFLOXacin 750 MG TABLET PO SCH (06:15)
[2020-03-19] MEDS: FORMOTEROL FUMARATE 20 MCG/2 ML INHALATION SOLUTION (PERFOROMIST) INH SCH ×2 (08:00→20:00)
[2020-03-19] MEDS: TIOTROPIUM INHALER/CAPSULE (SPIRIVA) INH SCH (08:00)
[2020-03-19] MEDS: HumaLOG INSULIN (NovoLOG) PER UNIT SC SCH ×4 (10:04→21:14)
[2020-03-19] MEDS: OMEPRAZOLE 20 MG CAP PO SCH (10:05)
[2020-03-19] MEDS: CETIRIZINE (ZyrTEC) 10 MG TAB PO SCH (10:05)
[2020-03-19] MEDS: dexameTHASONE 4 MG/ML 1ML VIAL (J1100 PER 1MG) IV SCH ×2 (10:06→21:13)
[2020-03-19] MEDS: TAMSULOSIN 0.4 MG CAP PO SCH (10:07)
[2020-03-19] MEDS: ENOXAPARIN 40MG/0.4ML SYRINGE (J1650 PER 10MG) SC SCH ×2 (10:11→21:14)
--- NOTE | 2020-03-19 11:29 | REP ---
INDICATION: hypoxia COMPARISON: None. TECHNIQUE: Real time compression and duplex Doppler interrogation of the bilateral lower extremity deep venous system is performed. FINDINGS: Bilaterally, the common femoral, superficial femoral and popliteal veins are fully compressible with transducer pressure and demonstrate normal spontaneous and phasic flow, without evidence of deep venous thrombosis. IMPRESSION: No evidence of deep venous thrombosis of the bilateral lower extremity femoral popliteal venous system. <Electronically signed by Rosendo Steel > 03/19/20 [id number]
--- NOTE | 2020-03-19 17:07 | IPNPDOC ---
Subjective Date Seen The patient was seen on 03/19/20. Subjective Chief Complaint/HPI SUBJECTIVE: Overnight, nursing reported that he refused BIPAP around midnight. This am, he's AAOx3 when i examined him at bedside. He's more compliant this am with BIPAP and he's saturating >90% on it with same settings as yesterday 02/15. He states that he continues to feel better and denies CP, fever, chills, abdominal pain, n/v/d. OBJECTIVE: PHYSICAL EXAM VS: see below. BIPAP 02/15 satting above 90% Constitutional: Awake and alert x3, NAD, able to speak in full sentences without desaturations or sob ENT: Sclera are clear. Mucosa is moist. Respiratory: decreased breath sounds in bilateral lung bases; unable to appreciate wheezing, rales Cardiovascular: Regular heart rate no murmurs. no peripheral edema appreciated Gastrointestinal: Abdomen is soft, non distended, non tender, BS present. Musculoskeletal: No lower extremity edema appreciated; non tender on palpation Neurologic: No focal neurological deficit. AAO x3, normal affect Skin: Warm, dry, no cyanosis or clubbing ASSESSMENT AND PLAN: This is a 74-year-old male with a PMHx significant for COPD and NIDDM, who presents to [facility] ER with altered mental status and shortness of breath. Pt is a bad historian and most of the history was gathered from patient's . [place] fleming to her, patient was exposed to his daughter who was COVID positive. He was tested for COVID 23 and the results were positive; however, he was asymptomatic until 03/08/2020 when he started feeling more confused and progressively more lethargic and weak. He also Pt reports that he's also had a decreased appetite since his symptoms started and reports occassional coughs which causes some sharp chest pain. In the ED, he was satting between 80-88% on RA and required 3L NC to maintain saturations above 88%. He initially had an elevated procal and XR chest shows chronic lower lobe airspace disease. During his hospitalization, pt continues to require more oxygenation and maxed out on vapotherm and after having many talks with the patient as well as his about his treatment options, he agreed to try on BIPAP and was thereafter transferred to the ICU. Will order a portable XR to see progression of his PNA. # Acute hypoxic respiratory failure 2 COVID pneumonia - At times, not compliant with BIPAP machine and is still non-compliant with proning - Pt saturates above 90% when wearing BIPAP Continue BIPAP and transition to vapotherm as tolerated to maintain sats >90%. - XR chest- No new changes per radiologist; Per Feed Management Advisor (Dr. Gifford), there may be a new L lower lobe infiltrate - Pt's CRP is trending up. We will re-order another procal today - Pending results of procal- may broaden abx to cover for CAP - Will continue to trend inflammatory markers C/w Dexamethasone 6mg IV BID and Remdesivir - C/w Therapuetic dose of lovenox c/w with abx levaquin - Pulmonology (Dr. Gifford) consulted- greatly appreciate further recommendations #COPD (not in exacerbation) Pt takes Anoro Elipta as home regimen - C/w Spiriva and Perforomist c/w Combivent PRN #NIDDM c/w 25 units basal insulin Sliding scale insulin with +FSBS + hypoglycemia protocol Carbohydrate consistent diet #GERD C/w omeprazole #BPH C/w tamsulosin DVT ppx: Lovenox BID GI ppx: omeprazole Fluids:none Diet: consistent carb Code status: DNR/DNI Disposition: Pt's condition is guarded, as patient is noncompliant with BIPAP and proning. Pending procal Objective Physical Examination General Exam: Positive: Cooperative Eye Exam: Positive: EOMI; Negative: Sclera icteric ENT Exam: Positive: Atraumatic Neck Exam: Positive: Supple Chest Exam: Positive: Rhonchi Heart Exam: Positive: Rate Normal, Regular Rhythm Abdomen Exam: Positive: Normal bowel sounds, Soft, Tenderness (mild periumbilical tenderness) Extremity Exam: Negative: Edema Skin Exam: Positive: Nl turgor and temperature Neuro Exam: Positive: Cranial Nerves 3-12 NL Psych Exam: Positive: Oriented x 3 Assessment /Plan Plan/VTE VTE Prophylaxis Ordered?: Yes VS, I&O, 24H, Fishbone Vital Signs/I&O Vital Signs Date Time Temp Pulse Resp B/P (MAP) Pulse Ox O2 Delivery O2 Flow Rate FiO2 03/19/20 04:00 96.4 80 23 119/64 (82) 91 HVNI-Vapotherm 40.0 100 I&O- Last 24 Hours up to 6 AM 03/19/20 06:00 Intake Total 2120 ml Output Total 775 ml Balance 1345 ml Laboratory Data 24H LABS Laboratory Tests 2 03/18/20 11:42: Bedside Glucose (Misc Panel) 197H 03/18/20 13:14: Magnesium Level 3.0H 03/18/20 17:10: Bedside Glucose (Misc Panel) 261H 03/18/20 20:56: Bedside Glucose (Misc Panel) 230H 03/19/20 04:43: 03/19/20 04:49: Immature Granulocyte % (Auto) 0.4, Neutrophils (%) (Auto) 95.1H, Lymphocytes (%) (Auto) 2.7L, Monocytes (%) (Auto) 1.8, Eosinophils (%) (Auto) 0.0, Basophils (%) (Auto) 0.0, Neutrophils # (Auto) 8.7H, Lymphocytes # (Auto) 0.3L, Monocytes # (Auto) 0.2, Eosinophils # (Auto) 0.0, Basophils # (Auto) 0.0, Nucleated Red Blood Cells % (auto) 0.0, Prothrombin Time 17.2H, Prothromb Time International Ratio 1.37, Activated Partial Thromboplast Time 41.6H, Fibrinogen 649H, D-Dimer, Quantitative 956.77H, Anion Gap 8, Glomerular Filtration Rate 55.2, Calcium Level 8.0L, Ferritin 1018H, Total Bilirubin 0.6, Direct Bilirubin 0.3H, Aspartate Amino Transf (AST/SGOT) 36, Alanine Aminotransferase (ALT/SGPT) 18, Alkaline Phosphatase 64, Lactate Dehydrogenase 711H, Total Creatine Kinase 82, Troponin I < 0.02, C-Reactive Protein, Quantitative 15.50H, Total Protein 6.0L, Albumin 2.4L, Albumin/Globulin Ratio 0.7 CBC/BMP Laboratory Tests 03/19/20 04:49 Microbiology Microbiology 03/13/20 Blood Culture - Final, Complete NO GROWTH AFTER 5 DAYS GME ATTESTATION GME ATTESTATION My faculty preceptor for this patient encounter was physically present during the encounter and was fully available. All aspects of the patient interview, examination, medical decision making process, and medical care plan development were reviewed and approved by the faculty preceptor. The faculty preceptor is aware and concurs with the plan as stated in the body of this note and will attest to such by his/her cosignature. ATTENDING NOTE I, Ramakrishna Wyman MD, have independently examined this patient and performed my own physical exam, as well as reviewed the documentation and edited where necessary. I have discussed in detail with the resident / student the findings and plan of treatment as documented by the resident / student and edited their note. I agree with their findings and treatment plan and have edited their documentation. Tessa Cooley DO Mar 19, 2020 11:37 RAMAKRISHNA WYMAN MD Mar 20, 2020 14:59
[2020-03-19] MEDS: REMDESIVIR 100 MG in NS 250 ML IV SCH (18:24)
[2020-03-19] MEDS: SODIUM CHLORIDE 0.9% INJ 10 ML SYR IV SCH (18:24)
[2020-03-19] MEDS: ATORVASTATIN 20 MG TAB PO SCH (21:12)
[2020-03-19] MEDS: atenoloL 25 MG TAB PO SCH (21:12)
[2020-03-19] MEDS: ASPIRIN 81 MG ENTERIC TAB PO SCH (21:13)
[2020-03-19] MEDS: ACETAMINOPHEN TAB 650MG DOSE (2X325MG) PO PRN (21:13)
[2020-03-19] MEDS: RAMELTEON 8 MG TAB (ROZEREM) PO PRN (21:13)
[2020-03-19] MEDS: GABAPENTIN 300 MG CAP PO SCH (21:13)
[2020-03-19] MEDS: LEVEMIR (INSULIN DETEMIR) 1 UNITS/0.01ML SC SCH (21:15)
[2020-03-20] VITALS: BP 124/71; O2SAT 90
[2020-03-20 04:00] VITALS: BP 101/54; O2SAT 83
[2020-03-20 05:41] LABS: BASO % 0.1 % (0.0-1.0); HEMOGLOBIN 12.1 g/dl (13.5-17.5); LYMPH # 0.3 10^3/uL (1.5-5.0); LYMPH % 2.7 % (24.0-44.0); MEAN CORPUSCULAR HGB CONC 32.7 g/dl (32.0-36.5); MEAN CORPUSCULAR VOLUME 88.7 fl (80.0-96.0); MONO # 0.3 10^3/uL (0.0-0.8); NEUTROPHILS # 8.7 10^3/uL (1.5-8.5); NEUTROPHILS % 93.6 % (36.0-66.0); PLATELET COUNT, AUTOMATED 267 10^3/uL (150-450); RED BLOOD COUNT 4.17 10^6/uL (4.30-6.10); WHITE BLOOD COUNT 9.3 10^3/uL (4.0-10.0)
[2020-03-20 06:13] LABS: ALBUMIN 2.5 GM/DL (3.2-5.2); BILIRUBIN,TOTAL 0.5 MG/DL (0.2-1.0); C REACTIVE PROTEIN QUANTITATIV 8.1 MG/DL (0.00-0.30); CALCIUM LEVEL 8.3 MG/DL (8.8-10.2); CREATININE FOR GFR 1.45 MG/DL (0.70-1.30); GLOMERULAR FILTRATION RATE 50.4 (>42); POTASSIUM SERUM 4.4 MEQ/L (3.5-5.1)
[2020-03-20 06:15] LABS: D-DIMER QUANT 950.22 ng/ml (<500)
[2020-03-20] MEDS: HumaLOG INSULIN (NovoLOG) PER UNIT SC SCH ×4 (07:59→21:00)
[2020-03-20 08:00] VITALS: BP 105/61; O2SAT 89
[2020-03-20] MEDS: OMEPRAZOLE 20 MG CAP PO SCH (09:01)
[2020-03-20] MEDS: CETIRIZINE (ZyrTEC) 10 MG TAB PO SCH (09:01)
[2020-03-20] MEDS: TAMSULOSIN 0.4 MG CAP PO SCH (09:02)
[2020-03-20] MEDS: ENOXAPARIN 40MG/0.4ML SYRINGE (J1650 PER 10MG) SC SCH ×2 (09:02→22:25)
[2020-03-20] MEDS: FORMOTEROL FUMARATE 20 MCG/2 ML INHALATION SOLUTION (PERFOROMIST) INH SCH ×2 (09:02→20:00)
[2020-03-20] MEDS: dexameTHASONE 4 MG/ML 1ML VIAL (J1100 PER 1MG) IV SCH ×2 (09:02→22:26)
[2020-03-20] MEDS: TIOTROPIUM INHALER/CAPSULE (SPIRIVA) INH SCH (09:02)
[2020-03-20 12:00] VITALS: BP 128/66; O2SAT 88
--- NOTE | 2020-03-20 12:12 | IPNPDOC ---
Subjective Date Seen The patient was seen on 03/20/20. Subjective Chief Complaint/HPI SUBJECTIVE: Overnight, nursing reports patient was not compliant with BIPAP and refused it. He's agitated at night and rozarem was ordered which did not help. He desats to the low 80s, sometimes 70s when he's agitated and on vapotherm. This am, he's seen at bedside and patient is AAOx3 and again states that he feels well and denies CP, sob, abd pain, fever, chills, n/v/d. OBJECTIVE: PHYSICAL EXAM VS: see below. On vapotherm 100% FIO2; 40L satting 89% Constitutional: Awake and alert x3, NAD, able to speak in full sentences without desaturations or sob ENT: Sclera are clear. Mucosa is moist. Respiratory: decreased breath sounds in bilateral lung bases; unable to appreciate wheezing, rales, rhonci Cardiovascular: Regular heart rate no murmurs. no peripheral edema appreciated Gastrointestinal: Abdomen is soft, non distended, non tender, BS present. Musculoskeletal: No lower extremity edema appreciated; non tender on palpation Neurologic: No focal neurological deficit. AAO x3, normal affect Skin: Warm, dry, no cyanosis or clubbing ASSESSMENT AND PLAN: This is a 74-year-old male with a PMHx significant for COPD and NIDDM, who presents to [facility] ER with altered mental status and shortness of breath. Pt is a bad historian and most of the history was gathered from patient's . According to her, patient was exposed to his daughter who was COVID positive. He was tested for COVID 23 and the results were positive; however, he was asymptomatic until 03/08/2020 when he started feeling more confused and progressively more lethargic and weak. He also Pt reports that he's also had a decreased appetite since his symptoms started and reports occassional coughs which causes some sharp chest pain. In the ED, he was satting between 80-88% on RA and required 3L NC to maintain saturations above 88%. He initially had an elevated procal and XR chest shows chronic lower lobe airspace disease. During his hospitalization, pt continues to require more oxygenation and maxed out on vapotherm and after having many talks with the patient as well as his about his treatment options, he agreed to try on BIPAP and was thereafter transferred to the ICU. Will order a portable XR to see progression of his PNA. His procal is trending down and i have ordered procal trends to descalate abx. # Acute hypoxic respiratory failure 2/2 COVID pneumonia - At times, not compliant with BIPAP machine and is still non-compliant with proning - Pt satting 89% on 40L and 100% FIO2 of vapotherm Continue BIPAP and transition to vapotherm as tolerated to maintain sats >90%. - XR chest- No new changes per radiologist; Per Grout Pump Operator (Dr. Gifford), there may be a new L lower lobe infiltrate - D-dimer, fibrinogen and CRP trending down - Pending results of procal- may broaden abx to cover for CAP - Will continue to trend inflammatory markers C/w Dexamethasone 6mg IV BID and Remdesivir - C/w Therapuetic dose of lovenox c/w with abx levaquin - Pulmonology (Dr. Gifford) consulted- greatly appreciate further recommendations #COPD (not in exacerbation) Pt takes Anoro Elipta as home regimen - C/w Spiriva and Perforomist c/w Combivent PRN #NIDDM c/w 25 units basal insulin Sliding scale insulin with +FSBS + hypoglycemia protocol Carbohydrate consistent diet #GERD C/w omeprazole #BPH C/w tamsulosin DVT ppx: Lovenox BID GI ppx: omeprazole Fluids:none Diet: consistent carb Code status: DNR/DNI Disposition: Pt's condition is guarded, as patient is noncompliant with BIPAP and proning. Continue BIPAP and vapotherm Objective Physical Examination General Exam: Positive: Cooperative Eye Exam: Positive: EOMI; Negative: Sclera icteric ENT Exam: Positive: Atraumatic Neck Exam: Positive: Supple Chest Exam: Positive: Rhonchi Heart Exam: Positive: Rate Normal, Regular Rhythm Abdomen Exam: Positive: Normal bowel sounds, Soft, Tenderness (mild brennan umbilical tenderness) Extremity Exam: Negative: Edema Skin Exam: Positive: Nl turgor and temperature Neuro Exam: Positive: Cranial Nerves 3-12 NL Psych Exam: Positive: Oriented x 3 Assessment /Plan Plan/VTE VTE Prophylaxis Ordered?: Yes VS, I&O, 24H, Fishbone Vital Signs/I&O Vital Signs Date Time Temp Pulse Resp B/P (MAP) Pulse Ox O2 Delivery O2 Flow Rate FiO2 03/20/20 08:00 90 03/20/20 08:00 97.2 72 34 105/61 (76) 87 HVNI-Vapotherm 40.0 I&O- Last 24 Hours up to 6 AM 03/20/20 06:00 Intake Total 1205 ml Output Total 1575 ml Balance -370 ml Laboratory Data 24H LABS Laboratory Tests 2 03/19/20 11:47: Bedside Glucose (Misc Panel) 318H 03/19/20 18:15: Bedside Glucose (Misc Panel) 177H 03/19/20 21:05: Bedside Glucose (Misc Panel) 225H 03/20/20 05:03: Immature Granulocyte % (Auto) 0.6, Neutrophils (%) (Auto) 93.6H, Lymphocytes (%) (Auto) 2.7L, Monocytes (%) (Auto) 3.0, Eosinophils (%) (Auto) 0.0, Basophils (%) (Auto) 0.1, Neutrophils # (Auto) 8.7H, Lymphocytes # (Auto) 0.3L, Monocytes # (Auto) 0.3, Eosinophils # (Auto) 0.0, Basophils # (Auto) 0.0, Nucleated Red Blood Cells % (auto) 0.0, Fibrinogen 632H, D-Dimer, Quantitative 950.22H, Anion Gap 5L, Glomerular Filtration Rate 50.4, Calcium Level 8.3L, Ferritin 1023H, Total Bilirubin 0.5, Aspartate Amino Transf (AST/SGOT) 26, Alanine Aminotransferase (ALT/SGPT) 17, Alkaline Phosphatase 65, C-Reactive Protein, Quantitative 8.10H, Total Protein 7.0, Albumin 2.5L, Albumin/Globulin Ratio 0.6 CBC/BMP Laboratory Tests 03/20/20 05:03 Microbiology Microbiology 03/13/20 Blood Culture - Final, Complete NO GROWTH AFTER 5 DAYS GME ATTESTATION GME ATTESTATION My faculty preceptor for this patient encounter was physically present during the encounter and was fully available. All aspects of the patient interview, examination, medical decision making process, and medical care plan development were reviewed and approved by the faculty preceptor. The faculty preceptor is aware and concurs with the plan as stated in the body of this note and will attest to such by his/her cosignature. ATTENDING NOTE I, Mamadou Lyle MD, have independently examined this patient and performed my o wn physical exam, as well as reviewed the documentation and edited where necessary. I have discussed in detail with the resident / student the findings and plan of treatment as documented by the resident / student and edited their note. I agree with their findings and treatment plan and have edited their documentation. Tessa Cooley DO Mar 20, 2020 10:15 MAMADOU LYLE MD Mar 20, 2020 14:59
[2020-03-20] MEDS: traMADol 50 MG TAB PO PRN ×2 (14:55→22:28)
[2020-03-20 16:00] VITALS: BP 122/74; O2SAT 90
[2020-03-20] MEDS: SODIUM CHLORIDE NASAL 0.65% SPRAY BTL (OCEAN) SCH ×2 (16:00→22:26)
[2020-03-20] MEDS: SODIUM CHLORIDE 0.9% INJ 10 ML SYR IV SCH (18:02)
[2020-03-20] MEDS: REMDESIVIR 100 MG in NS 250 ML IV SCH (18:02)
[2020-03-20 20:00] VITALS: BP 100/51; O2SAT 91
[2020-03-20] MEDS: atenoloL 25 MG TAB PO SCH (21:00)
[2020-03-20] MEDS: ATORVASTATIN 20 MG TAB PO SCH (22:22)
[2020-03-20] MEDS: ASPIRIN 81 MG ENTERIC TAB PO SCH (22:22)
[2020-03-20] MEDS: GABAPENTIN 300 MG CAP PO SCH (22:22)
[2020-03-20] MEDS: LEVEMIR (INSULIN DETEMIR) 1 UNITS/0.01ML SC SCH (22:24)
[2020-03-20] MEDS: RAMELTEON 8 MG TAB (ROZEREM) PO PRN (22:27)
[2020-03-21] VITALS (22 sets, daily range): BP systolic 99–130; BP diastolic 55–75; O2SAT 88–96
[2020-03-21 05:03] LABS: BASO % 0.1 % (0.0-1.0); HEMATOCRIT 38.6 % (42.0-52.0); HEMOGLOBIN 12.7 g/dl (13.5-17.5); LYMPH # 0.2 10^3/uL (1.5-5.0); LYMPH % 2.1 % (24.0-44.0); MEAN CORPUSCULAR HEMOGLOBIN 28.9 pg (27.0-33.0); MEAN CORPUSCULAR HGB CONC 32.9 g/dl (32.0-36.5); MEAN CORPUSCULAR VOLUME 87.9 fl (80.0-96.0); MONO # 0.3 10^3/uL (0.0-0.8); MONO % 2.9 % (0.0-5.0); NEUTROPHILS # 8.2 10^3/uL (1.5-8.5); NEUTROPHILS % 94.1 % (36.0-66.0); PLATELET COUNT, AUTOMATED 236 10^3/uL (150-450); RED BLOOD COUNT 4.39 10^6/uL (4.30-6.10); WHITE BLOOD COUNT 8.7 10^3/uL (4.0-10.0)
[2020-03-21 05:20] LABS: D-DIMER QUANT 1425.44 ng/ml (<500)
[2020-03-21 05:32] LABS: ALBUMIN 2.4 GM/DL (3.2-5.2); BILIRUBIN,TOTAL 0.6 MG/DL (0.2-1.0); C REACTIVE PROTEIN QUANTITATIV 4.18 MG/DL (0.00-0.30); CALCIUM LEVEL 7.7 MG/DL (8.8-10.2); CREATININE FOR GFR 1.33 MG/DL (0.70-1.30); GLOMERULAR FILTRATION RATE 55.7 (>42); POTASSIUM SERUM 5.1 MEQ/L (3.5-5.1); TOTAL PROTEIN 6.1 GM/DL (6.4-8.2)
[2020-03-21] MEDS: LevoFLOXacin 750 MG TABLET PO SCH (05:44)
[2020-03-21] MEDS: TIOTROPIUM INHALER/CAPSULE (SPIRIVA) INH SCH (08:00)
[2020-03-21] MEDS: FORMOTEROL FUMARATE 20 MCG/2 ML INHALATION SOLUTION (PERFOROMIST) INH SCH ×2 (08:00→20:00)
[2020-03-21] MEDS: dexameTHASONE 4 MG/ML 1ML VIAL (J1100 PER 1MG) IV SCH ×2 (08:24→20:18)
[2020-03-21] MEDS: CETIRIZINE (ZyrTEC) 10 MG TAB PO SCH (08:25)
[2020-03-21] MEDS: TAMSULOSIN 0.4 MG CAP PO SCH (08:25)
[2020-03-21] MEDS: OMEPRAZOLE 20 MG CAP PO SCH (08:25)
[2020-03-21] MEDS: HumaLOG INSULIN (NovoLOG) PER UNIT SC SCH ×4 (08:26→20:46)
[2020-03-21] MEDS: SODIUM CHLORIDE NASAL 0.65% SPRAY BTL (OCEAN) SCH ×3 (08:27→22:30)
[2020-03-21] MEDS: ENOXAPARIN 40MG/0.4ML SYRINGE (J1650 PER 10MG) SC SCH ×2 (08:27→20:18)
--- NOTE | 2020-03-21 11:09 | IPNPDOC ---
Date Seen The patient was seen on 03/21/20. Progress Note SUBJECTIVE: Patient has been noncompliant with his BiPAP and wants to go home. He desaturates to mid 70-80 O2 saturation when he speaks., No cough, fever, chills Denies chest pain. Anosmia, dysgeusia, nausea, vomiting or abdominal pain OBJECTIVE PHYSICAL EXAMINATION: VITAL SIGNS: Please see below. GENERAL: Positive use of respiratory accessory muscles, 5-6 word conversational dyspnea despite Vapotherm HEENT: No JVD, no thyromegaly, no cervical lymphadenopathy CARDIOVASCULAR: ., S1, S2 regular rate rhythm RESPIRATORY: Diminished breath sounds, bilateral crackles ABDOMINAL: Soft, nontender, nondistended, positive bowel sounds 4 quadrants EXTREMITIES: No cyanosis or clubbing or pitting edema LABORATORY DATA, IMAGING STUDIES, MICROBIOLOGY: Please see below. ASSESSMENT AND PLAN: A 74-year-old male with history diabetes and COPD presented to the emergency room due to complaints of worsening shortness of breath, found to have covert pneumonia and acute hypoxic respiratory failure, now requiring Vapotherm and ICU Acute hypoxic respiratory failure Secondary to Cross virus 19. Pneumonia. Despite Vapotherm. Patient continues to have conversational dyspnea and oxygen desaturations. He has refused BiPAP therapy and has called his and his son of encouragement to continue with medical treatment. Patient continues to say "I want to go home." Keep O2 saturations greater than 94%. Cage Unloader, Dr. Sosa has been consulted for BiPAP management. If the patient permits us to treat him Coronavirus. Pneumonia Still requiring Vapotherm to keep saturations above 94% and refusing BiPAP therapy. Patient's inflammatory markers have improved significantly and had been on a downward trend. Patient is currently on dexamethasone, remdesevir, Lovenox and Levaquin. Cage Unloader, consulted for help in management COPD, compensated Diabetes type 2 On insulin sliding scale, consistent carbohydrate diet and hypoglycemic protocol fingersticks every before meals at bedtime Gastroesophageal reflux disease on Prilosec BPH, and tamsulosin Disposition pending clinical improvement VS, I&O, 24H, Fishbone Vital Signs/I&O Vital Signs Date Time Temp Pulse Resp B/P (MAP) Pulse Ox O2 Delivery O2 Flow Rate FiO2 03/21/20 10:30 97 61 HVNI-Vapotherm 40.0 100 03/21/20 10:00 20 103/58 (73) 03/21/20 08:00 97.6 I&O- Last 24 Hours up to 6 AM 03/21/20 06:00 Intake Total 1640 ml Output Total 1525 ml Balance 115 ml Laboratory Data 24H LABS Laboratory Tests 2 03/20/20 12:11: Bedside Glucose (Misc Panel) 207H 03/20/20 17:54: Bedside Glucose (Misc Panel) 178H 03/20/20 20:19: Bedside Glucose (Misc Panel) 221H 03/21/20 04:42: Immature Granulocyte % (Auto) 0.8, Neutrophils (%) (Auto) 94.1H, Lymphocytes (%) (Auto) 2.1L, Monocytes (%) (Auto) 2.9, Eosinophils (%) (Auto) 0.0, Basophils (%) (Auto) 0.1, Neutrophils # (Auto) 8.2, Lymphocytes # (Auto) 0.2L, Monocytes # (Auto) 0.3, Eosinophils # (Auto) 0.0, Basophils # (Auto) 0.0, Nucleated Red Blood Cells % (auto) 0.0, Fibrinogen 552H, D-Dimer, Quantitative 1425.44H, Anion Gap 6L, Glomerular Filtration Rate 55.7, Calcium Level 7.7L, Ferritin 706H, Total Bilirubin 0.6, Aspartate Amino Transf (AST/SGOT) 31, Alanine Aminotransferase (ALT/SGPT) 18, Alkaline Phosphatase 69, C-Reactive Protein, Quantitative 4.18H, Total Protein 6.1L, Albumin 2.4L, Albumin/Globulin Ratio 0.6 03/21/20 08:23: Bedside Glucose (Misc Panel) 214H CBC/BMP Laboratory Tests 03/21/20 04:42 Microbiology Microbiology 03/13/20 Blood Culture - Final, Complete NO GROWTH AFTER 5 DAYS EBENEZER UMANA MD Mar 21, 2020 11:09
[2020-03-21] MEDS: ACETAMINOPHEN TAB 650MG DOSE (2X325MG) PO PRN (11:57)
[2020-03-21] MEDS: REMDESIVIR 100 MG in NS 250 ML IV SCH (18:21)
[2020-03-21] MEDS: SODIUM CHLORIDE 0.9% INJ 10 ML SYR IV SCH (20:18)
[2020-03-21] MEDS: LEVEMIR (INSULIN DETEMIR) 1 UNITS/0.01ML SC SCH (20:19)
[2020-03-21] MEDS: ASPIRIN 81 MG ENTERIC TAB PO SCH (20:19)
[2020-03-21] MEDS: ATORVASTATIN 20 MG TAB PO SCH (20:19)
[2020-03-21] MEDS: GABAPENTIN 300 MG CAP PO SCH (20:19)
[2020-03-21] MEDS: atenoloL 25 MG TAB PO SCH (20:20)
[2020-03-22] VITALS (13 sets, daily range): BP systolic 92–121; BP diastolic 53–85; O2SAT 88–93
[2020-03-22] MEDS: RAMELTEON 8 MG TAB (ROZEREM) PO PRN ×2 (00:22→21:55)
[2020-03-22] MEDS: traMADol 50 MG TAB PO PRN ×2 (00:23→21:56)
[2020-03-22 04:16] LABS: BASO % 0.1 % (0.0-1.0); HEMATOCRIT 42.1 % (42.0-52.0); HEMOGLOBIN 13.7 g/dl (13.5-17.5); LYMPH # 0.2 10^3/uL (1.5-5.0); MEAN CORPUSCULAR HEMOGLOBIN 28.8 pg (27.0-33.0); MEAN CORPUSCULAR HGB CONC 32.5 g/dl (32.0-36.5); MEAN CORPUSCULAR VOLUME 88.6 fl (80.0-96.0); MONO # 0.3 10^3/uL (0.0-0.8); MONO % 2.4 % (0.0-5.0); NEUTROPHILS # 10.2 10^3/uL (1.5-8.5); NEUTROPHILS % 94.5 % (36.0-66.0); PLATELET COUNT, AUTOMATED 271 10^3/uL (150-450); RED BLOOD COUNT 4.75 10^6/uL (4.30-6.10); WHITE BLOOD COUNT 10.8 10^3/uL (4.0-10.0)
[2020-03-22 04:36] LABS: D-DIMER QUANT 1701.25 ng/ml (<500)
[2020-03-22 04:57] LABS: ALBUMIN 2.4 GM/DL (3.2-5.2); BILIRUBIN,TOTAL 0.6 MG/DL (0.2-1.0); C REACTIVE PROTEIN QUANTITATIV 4.2 MG/DL (0.00-0.30); CALCIUM LEVEL 8.3 MG/DL (8.8-10.2); CREATININE FOR GFR 1.25 MG/DL (0.70-1.30); GLOMERULAR FILTRATION RATE 59.8 (>42); TOTAL PROTEIN 6.4 GM/DL (6.4-8.2)
[2020-03-22] MEDS: FORMOTEROL FUMARATE 20 MCG/2 ML INHALATION SOLUTION (PERFOROMIST) INH SCH ×2 (08:00→20:00)
[2020-03-22] MEDS: TIOTROPIUM INHALER/CAPSULE (SPIRIVA) INH SCH (08:00)
[2020-03-22] MEDS: OMEPRAZOLE 20 MG CAP PO SCH (08:02)
[2020-03-22] MEDS: TAMSULOSIN 0.4 MG CAP PO SCH (08:02)
[2020-03-22] MEDS: CETIRIZINE (ZyrTEC) 10 MG TAB PO SCH (08:02)
[2020-03-22] MEDS: dexameTHASONE 4 MG/ML 1ML VIAL (J1100 PER 1MG) IV SCH ×2 (08:02→21:57)
[2020-03-22] MEDS: ENOXAPARIN 40MG/0.4ML SYRINGE (J1650 PER 10MG) SC SCH ×2 (08:03→21:58)
[2020-03-22] MEDS: SODIUM CHLORIDE NASAL 0.65% SPRAY BTL (OCEAN) SCH ×3 (08:04→21:58)
[2020-03-22] MEDS: HumaLOG INSULIN (NovoLOG) PER UNIT SC SCH ×4 (08:18→21:00)
--- NOTE | 2020-03-22 10:21 | IPNPDOC ---
Date Seen The patient was seen on 03/22/20. Progress Note SUBJECTIVE: Pt c/o productive cough blood tinged and black in color. He denies hematemesis, epistaxis, nausea, vomiting, but admits to persistent LIGHT when standing and walking tot eh toilet with o2sat 78-84% despite vapotherm. no chest pain, pressure, tightness, dizziness,Anosmia, dysgeusia, nausea, vomiting or abdominal pain. He seems to be in a much better mood and not demanding to be discharged home. He is requesting to ambulate more with assistance around the room. OBJECTIVE PHYSICAL EXAMINATION: VITAL SIGNS: Please see below. GENERAL: Positive use of respiratory accessory muscles, 7-8 word conversational dyspnea despite Vapotherm no pallor, cyanosis, nasal flaring, or tracheal deviation HEENT: No JVD, no thyromegaly, no cervical lymphadenopathy no stridor, or carotid bruits. CARDIOVASCULAR: S1, S2 regular rate rhythm RESPIRATORY: Diminished breath sounds,no wheezing or rales fine crepitations. no tactile fremitus. ABDOMINAL: Soft, nontender, nondistended, positive bowel sounds 4 quadrants no HSM or rebound no guarding. no abdominal bruit noted EXTREMITIES: No cyanosis or clubbing or pitting edema LABORATORY DATA, IMAGING STUDIES, MICROBIOLOGY: Please see below. ASSESSMENT AND PLAN: A 74-year-old male with history diabetes and COPD presented to the emergency room due to complaints of worsening shortness of breath, found to have coronavirus -19 pneumonia and acute hypoxic respiratory failure, now requiring Vapotherm and ICU Acute hypoxic respiratory failure Secondary to Cross virus 19. Pneumonia. Despite Vapotherm, Patient continues to have conversational dyspnea and oxygen desaturations. He is maximized on conservative treatment with iv remdesevir, aspirin, levaquin, lovenox, decadron with no improvement, and remains hypoxic despite maximum oxygen supplementation with vapotherm. He is DNR/DNI, but has opted to continue with treatment despit e wanting to go home yesterday. Both his and his son were able to convince him to stay until he is off vapotherm. Coronavirus. Pneumonia Still requiring Vapotherm to keep saturations above 88%. Patient's inflammatory markers have improved significantly and had been on a downward trend. Patient is currently on dexamethasone, remdesevir, Lovenox and Levaquin. on maximum conservative treatment with persistent hypoxia. Per Dr. Tripp who reviewed the case, nothing further can be offered. He is maximized on appropriate therapy. COPD, compensated no wheezing noted on exam Diabetes type 2 On insulin sliding scale, consistent carbohydrate diet and hypoglycemic protocol fingersticks every before meals at bedtime Gastroesophageal reflux disease on Prilosec BPH, and tamsulosin Disposition pending clinical improvement. VS, I&O, 24H, Fishbone Vital Signs/I&O Vital Signs Date Time Temp Pulse Resp B/P (MAP) Pulse Ox O2 Delivery O2 Flow Rate FiO2 03/22/20 08:00 97.0 76 28 116/67 (83) 90 HVNI-Vapotherm 40.0 100 I&O- Last 24 Hours up to 6 AM 03/22/20 06:00 Intake Total 880 ml Output Total 1025 ml Balance -145 ml Laboratory Data 24H LABS Laboratory Tests 2 03/21/20 11:47: Bedside Glucose (Misc Panel) 256H 03/21/20 18:17: Bedside Glucose (Misc Panel) 158H 03/21/20 20:26: Bedside Glucose (Misc Panel) 184H 03/22/20 04:10: Immature Granulocyte % (Auto) 1.0, Neutrophils (%) (Auto) 94.5H, Lymphocytes (%) (Auto) 2.0L, Monocytes (%) (Auto) 2.4, Eosinophils (%) (Auto) 0.0, Basophils (%) (Auto) 0.1, Neutrophils # (Auto) 10.2H, Lymphocytes # (Auto) 0.2L, Monocytes # (Auto) 0.3, Eosinophils # (Auto) 0.0, Basophils # (Auto) 0.0, Nucleated Red Blood Cells % (auto) 0.0, Fibrinogen 537H, D-Dimer, Quantitative 1701.25H, Anion Gap 6L, Glomerular Filtration Rate 59.8, Calcium Level 8.3L, Ferritin 634H, Total Bilirubin 0.6, Aspartate Amino Transf (AST/SGOT) 31, Alanine Amino transferase (ALT/SGPT) 19, Alkaline Phosphatase 70, C-Reactive Protein, Quantitative 4.20H, Total Protein 6.4, Albumin 2.4L, Albumin/Globulin Ratio 0.6 CBC/BMP Laboratory Tests 03/22/20 04:10 Microbiology Microbiology 1/1/21 Blood Culture - Final, Complete NO GROWTH AFTER 5 DAYS EBENEZER UMANA MD Mar 22, 2020 10:21
[2020-03-22] MEDS: REMDESIVIR 100 MG in NS 250 ML IV SCH (17:35)
[2020-03-22] MEDS: ACETAMINOPHEN TAB 650MG DOSE (2X325MG) PO PRN (17:46)
[2020-03-22] MEDS: SODIUM CHLORIDE 0.9% INJ 10 ML SYR IV SCH (19:11)
[2020-03-22] MEDS: ASPIRIN 81 MG ENTERIC TAB PO SCH (21:55)
[2020-03-22] MEDS: GABAPENTIN 300 MG CAP PO SCH (21:55)
[2020-03-22] MEDS: ATORVASTATIN 20 MG TAB PO SCH (21:56)
[2020-03-22] MEDS: atenoloL 25 MG TAB PO SCH (21:57)
[2020-03-22] MEDS: LEVEMIR (INSULIN DETEMIR) 1 UNITS/0.01ML SC SCH (22:06)
[2020-03-23] VITALS (15 sets, daily range): BP systolic 89–140; BP diastolic 52–113; O2SAT 85–89
[2020-03-23] MEDS: FORMOTEROL FUMARATE 20 MCG/2 ML INHALATION SOLUTION (PERFOROMIST) INH SCH ×2 (08:00→20:32)
[2020-03-23] MEDS: TAMSULOSIN 0.4 MG CAP PO SCH (09:25)
[2020-03-23] MEDS: HumaLOG INSULIN (NovoLOG) PER UNIT SC SCH ×4 (09:25→20:11)
[2020-03-23] MEDS: CETIRIZINE (ZyrTEC) 10 MG TAB PO SCH (09:26)
[2020-03-23] MEDS: dexameTHASONE 4 MG/ML 1ML VIAL (J1100 PER 1MG) IV SCH ×2 (09:26→19:58)
[2020-03-23] MEDS: OMEPRAZOLE 20 MG CAP PO SCH (09:26)
[2020-03-23] MEDS: SODIUM CHLORIDE NASAL 0.65% SPRAY BTL (OCEAN) SCH ×3 (09:26→20:11)
[2020-03-23] MEDS: ENOXAPARIN 40MG/0.4ML SYRINGE (J1650 PER 10MG) SC SCH ×2 (09:27→19:59)
[2020-03-23] MEDS: TIOTROPIUM INHALER/CAPSULE (SPIRIVA) INH SCH (10:19)
[2020-03-23 11:07] LABS: BASO % 0.1 % (0.0-1.0); HEMATOCRIT 43.9 % (42.0-52.0); HEMOGLOBIN 14.7 g/dl (13.5-17.5); LYMPH # 0.3 10^3/uL (1.5-5.0); LYMPH % 1.7 % (24.0-44.0); MEAN CORPUSCULAR HGB CONC 33.5 g/dl (32.0-36.5); MEAN CORPUSCULAR VOLUME 89.6 fl (80.0-96.0); MONO # 0.2 10^3/uL (0.0-0.8); MONO % 1.5 % (0.0-5.0); NEUTROPHILS # 14.9 10^3/uL (1.5-8.5); NEUTROPHILS % 95.8 % (36.0-66.0); PLATELET COUNT, AUTOMATED 233 10^3/uL (150-450); WHITE BLOOD COUNT 15.6 10^3/uL (4.0-10.0)
[2020-03-23 11:40] LABS: ALBUMIN 2.5 GM/DL (3.2-5.2); BILIRUBIN,TOTAL 0.6 MG/DL (0.2-1.0); CALCIUM LEVEL 8.5 MG/DL (8.8-10.2); CREATININE FOR GFR 1.29 MG/DL (0.70-1.30); GLOMERULAR FILTRATION RATE 57.6 (>42); TOTAL PROTEIN 6.2 GM/DL (6.4-8.2)
--- NOTE | 2020-03-23 13:00 | IPNPDOC ---
Text Note Date of Service The patient was seen on 03/23/20. NOTE Subjective he was seen and examined this morning. The patient is still requiring 100% FiO2 on 40 L when on Vapotherm, but has agreed to using BiPAP. He is comfortable on BiPAP Physical examination HEENT: No JVD, no thyromegaly, no cervical lymphadenopathy no stridor, or carotid bruits. CARDIOVASCULAR: S1, S2 regular rate rhythm RESPIRATORY: Diminished breath sounds,no wheezing or rales fine crepitations. no tactile fremitus. ABDOMINAL: Soft, nontender, nondistended, positive bowel sounds 4 quadrants no HSM or rebound no guarding. no abdominal bruit noted EXTREMITIES: No cyanosis or clubbing or pitting edema Labs reviewed Radiology reviewed A 74-year-old male with history diabetes and COPD, on no home oxygen presented to the emergency room due to complaints of worsening shortness of breath, found to have coronavirus -19 pneumonia and acute hypoxic respiratory failure, now requiring Vapotherm/BiPAP and in ICU care 1. Acute hypoxic respiratory failure Secondary to Cross virus 19. Pneumonia. Currently he's on BiPAP with 100% FiO2. Despite BiPAP/Vapotherm, Patient continues to have conversational dyspnea and oxygen desaturations. He is maximized on conservative treatment with iv remdesevir, aspirin, levaquin, lovenox, decadron with no improvement, and remains hypoxic despite maximum oxygen supplementation with vapotherm. 2. Coronavirus. Pneumonia: Still requiring Vapotherm 800, FiO2 and 40 L/BiPAP to keep saturations above 88%. Patient's inflammatory markers have improved significantly. Patient is currently on dexamethasone, remdesevir, which is finishing today, Lovenox and Levaquin. on maximum conservative treatment with persistent hypoxia. 3. Diabetes type 2: On insulin sliding scale, consistent carbohydrate diet and hypoglycemic protocol fingersticks every before meals at bedtime 4. BPH, and tamsulosin DNR/DNI Disposition pending clinical improvement. VS,Fishbone, I+O VS, Fishbone, I+O Laboratory Tests 03/23/20 04:38 Vital Signs Date Time Temp Pulse Resp B/P (MAP) Pulse Ox O2 Delivery O2 Flow Rate FiO2 03/23/20 10:50 80 03/23/20 08:18 85 Non-Rebreather 15.0 03/23/20 04:00 97.3 60 26 97/55 (69) I&O- Last 24 Hours up to 6 AM 03/23/20 06:00 Intake Total 830 ml Output Total 1760 ml Balance -930 ml RAMAKRISHNA LYLE MD Mar 23, 2020 13:00
[2020-03-23] MEDS: GABAPENTIN 300 MG CAP PO SCH (19:57)
[2020-03-23] MEDS: ATORVASTATIN 20 MG TAB PO SCH (19:57)
[2020-03-23] MEDS: ASPIRIN 81 MG ENTERIC TAB PO SCH (19:57)
[2020-03-23] MEDS: LEVEMIR (INSULIN DETEMIR) 1 UNITS/0.01ML SC SCH (19:58)
[2020-03-23] MEDS: atenoloL 25 MG TAB PO SCH (20:24)
[2020-03-23] MEDS: traMADol 50 MG TAB PO PRN (21:55)
[2020-03-23] MEDS: RAMELTEON 8 MG TAB (ROZEREM) PO PRN (21:55)
[2020-03-24] VITALS: BP 99/69
[2020-03-24 04:00] VITALS: BP 100/65
[2020-03-24 08:00] VITALS: BP 130/83
[2020-03-24] MEDS: FORMOTEROL FUMARATE 20 MCG/2 ML INHALATION SOLUTION (PERFOROMIST) INH SCH ×3 (08:07→20:34)
[2020-03-24] MEDS: TIOTROPIUM INHALER/CAPSULE (SPIRIVA) INH SCH (08:08)
[2020-03-24] MEDS: SODIUM CHLORIDE NASAL 0.65% SPRAY BTL (OCEAN) SCH ×3 (08:16→20:39)
[2020-03-24] MEDS: HumaLOG INSULIN (NovoLOG) PER UNIT SC SCH ×4 (08:33→20:39)
[2020-03-24] MEDS: TAMSULOSIN 0.4 MG CAP PO SCH (09:36)
[2020-03-24] MEDS: CETIRIZINE (ZyrTEC) 10 MG TAB PO SCH (09:36)
[2020-03-24] MEDS: OMEPRAZOLE 20 MG CAP PO SCH (09:36)
[2020-03-24] MEDS: ENOXAPARIN 40MG/0.4ML SYRINGE (J1650 PER 10MG) SC SCH ×2 (09:36→20:21)
[2020-03-24] MEDS: dexameTHASONE 4 MG/ML 1ML VIAL (J1100 PER 1MG) IV SCH ×2 (09:36→20:21)
--- NOTE | 2020-03-24 11:40 | IPNPDOC ---
Text Note Date of Service The patient was seen on 03/24/20. NOTE Mr Richardson was seen and examined this morning. The patient is still requiring continous BiPAP. Physical examination HEENT: No JVD no stridor, or carotid bruits. CARDIOVASCULAR: S1, S2 regular rate rhythm RESPIRATORY: Diminished breath sounds,no wheezing or rales fine crepitations. no tactile fremitus. ABDOMINAL: Soft, nontender, nondistended, positive bowel sounds 4 quadrants no HSM or rebound no guarding. no abdominal bruit noted EXTREMITIES: No cyanosis or clubbing or pitting edema Labs reviewed Radiology reviewed A 74-year-old male with history diabetes and COPD, on no home oxygen presented to the emergency room due to complaints of worsening shortness of breath, found to have coronavirus -19 pneumonia and acute hypoxic respiratory failure, now requiring continuous BiPAP and in ICU care 1. Acute hypoxic respiratory failure Secondary to Cross virus 19. Pneumonia. Currently he's on BiPAP with 100% FiO2. Despite BiPAP/Vapotherm, Patient continues to have conversational dyspnea and oxygen desaturations. He is maximized on conservative treatment with iv remdesevir, aspirin, levaquin, lovenox, decadron with no improvement, and remains hypoxic despite maximum oxygen supplementation 2. Coronavirus.19 Pneumonia: Still on BiPAP to keep saturations above 88%. Patient's inflammatory markers have improved significantly. Patient is currently on dexamethasone, remdesevir 10 day course finished on 03/24/19, on Lovenox 40 bid, on maximum conservative treatment with persistent hypoxia. 3. Diabetes type 2: On insulin sliding scale, consistent carbohydrate diet and hypoglycemic protocol fingersticks every before meals at bedtime 4. BPH, and tamsulosin DNR/DNI Disposition pending clinical improvement. VS,Fishbone, I+O VS, Fishbone, I+O Vital Signs Date Time Temp Pulse Resp B/P (MAP) Pulse Ox O2 Delivery O2 Flow Rate FiO2 03/24/20 08:17 100 03/24/20 08:10 77 HVNI-Vapotherm 40.0 03/24/20 08:00 97.3 76 30 130/83 (99) I&O- Last 24 Hours up to 6 AM 03/24/20 05:59 Intake Total 840 ml Output Total 900 ml Balance -60 ml GME ATTESTATION GME ATTESTATION My faculty preceptor for this patient encounter was physically present during the encounter and was fully available. All aspects of the patient interview, examination, medical decision making process, and medical care plan development were reviewed and approved by the faculty preceptor. The faculty preceptor is aware and concurs with the plan as stated in the body of this note and will attest to such by his/her cosignature. ATTENDING NOTE I, Mamadou Lyle MD, have independently examined this patient and performed my own physical exam, as well as reviewed the documentation and edited where necessary. I have discussed in detail with the resident / student the findings and plan of treatment as documented by the resident / student and edited their note. I agree with their findings and treatment plan and have edited their documentation. MAMADOU LYLE MD Mar 24, 2020 11:40
[2020-03-24 12:00] VITALS: BP 99/64
[2020-03-24 16:00] VITALS: BP 108/59
[2020-03-24 20:00] VITALS: BP 108/72
[2020-03-24] MEDS: GABAPENTIN 300 MG CAP PO SCH (20:22)
[2020-03-24] MEDS: LEVEMIR (INSULIN DETEMIR) 1 UNITS/0.01ML SC SCH (20:22)
[2020-03-24] MEDS: ATORVASTATIN 20 MG TAB PO SCH (20:22)
[2020-03-24] MEDS: ASPIRIN 81 MG ENTERIC TAB PO SCH (20:23)
[2020-03-24] MEDS: atenoloL 25 MG TAB PO SCH (20:38)
[2020-03-24] MEDS: RAMELTEON 8 MG TAB (ROZEREM) PO PRN (23:07)
[2020-03-24] MEDS: traMADol 50 MG TAB PO PRN (23:07)
[2020-03-25] VITALS (7 sets, daily range): BP systolic 105–131; BP diastolic 56–76; O2SAT 93
[2020-03-25 04:59] LABS: BASO % 0.1 % (0.0-1.0); LYMPH # 0.3 10^3/uL (1.5-5.0); LYMPH % 1.7 % (24.0-44.0); MEAN CORPUSCULAR HEMOGLOBIN 28.8 pg (27.0-33.0); MEAN CORPUSCULAR HGB CONC 32.6 g/dl (32.0-36.5); MEAN CORPUSCULAR VOLUME 88.5 fl (80.0-96.0); MONO # 0.2 10^3/uL (0.0-0.8); MONO % 1.4 % (0.0-5.0); NEUTROPHILS # 14.5 10^3/uL (1.5-8.5); NEUTROPHILS % 95.5 % (36.0-66.0); PLATELET COUNT, AUTOMATED 194 10^3/uL (150-450); WHITE BLOOD COUNT 15.2 10^3/uL (4.0-10.0)
[2020-03-25 05:28] LABS: ALBUMIN 2.3 GM/DL (3.2-5.2); BILIRUBIN,TOTAL 0.8 MG/DL (0.2-1.0); CALCIUM LEVEL 8.6 MG/DL (8.8-10.2); CREATININE FOR GFR 1.41 MG/DL (0.70-1.30); POTASSIUM SERUM 4.6 MEQ/L (3.5-5.1)
[2020-03-25] MEDS: FORMOTEROL FUMARATE 20 MCG/2 ML INHALATION SOLUTION (PERFOROMIST) INH SCH ×2 (07:47→20:00)
[2020-03-25] MEDS: TIOTROPIUM INHALER/CAPSULE (SPIRIVA) INH SCH (07:47)
[2020-03-25] MEDS: HumaLOG INSULIN (NovoLOG) PER UNIT SC SCH ×4 (09:22→20:20)
[2020-03-25] MEDS: OMEPRAZOLE 20 MG CAP PO SCH (09:23)
[2020-03-25] MEDS: CETIRIZINE (ZyrTEC) 10 MG TAB PO SCH (09:23)
[2020-03-25] MEDS: SODIUM CHLORIDE NASAL 0.65% SPRAY BTL (OCEAN) SCH ×3 (09:23→20:21)
[2020-03-25] MEDS: ENOXAPARIN 40MG/0.4ML SYRINGE (J1650 PER 10MG) SC SCH (09:23)
[2020-03-25] MEDS: TAMSULOSIN 0.4 MG CAP PO SCH (09:23)
[2020-03-25] MEDS: dexameTHASONE 4 MG/ML 1ML VIAL (J1100 PER 1MG) IV SCH ×2 (09:23→20:07)
--- NOTE | 2020-03-25 15:27 | IPNPDOC ---
Text Note Date of Service The patient was seen on 03/25/20. NOTE Mr Richardson was seen and examined this morning. The patient is still requiring continous BiPAP and he wasn't deferred. Physical examination HEENT: No JVD no stridor, or carotid bruits. CARDIOVASCULAR: S1, S2 regular rate rhythm RESPIRATORY: Diminished breath sounds,no wheezing or rales fine crepitations. no tactile fremitus. ABDOMINAL: Soft, nontender, nondistended, positive bowel sounds 4 quadrants no HSM or rebound no guarding. no abdominal bruit noted EXTREMITIES: No cyanosis or clubbing or pitting edema Labs reviewed Radiology reviewed A 74-year-old male with history diabetes and COPD, on no home oxygen presented to the emergency room due to complaints of worsening shortness of breath, found to have coronavirus -19 pneumonia and acute hypoxic respiratory failure, now requiring continuous BiPAP and in ICU care 1. Acute hypoxic respiratory failure Secondary to Cross virus 19. Pneumonia. Currently he's on BiPAP with 90% FiO2 with setting of 12/6. Despite BiPAP/Vapotherm, Patient continues to have conversational dyspnea and oxygen desaturations. He is maximized on conservative treatment with iv remdesevir, aspirin, levaquin, lovenox, decadron with no improvement, and remains hypoxic despite maximum oxygen supplementation 2. Coronavirus.19 Pneumonia: Still on BiPAP to keep saturations above 91%. Patient's inflammatory markers have improved significantly. Patient is currently on dexamethasone, remdesevir 10 day course finished on 03/24/19, on Lovenox. Paramedics dose today at 75 twice a day, on maximum conservative treatment with persistent hypoxia. 3. A. fib with RVR. The telemetry strip did show A. fib with RVR. Will get a 12- lead EKG he is already on full dose anti-cognition. His atenolol has been increased from 20 to 50 at bedtime. Also, 2-D echo will be done. 4. Diabetes type 2: On insulin sliding scale, consistent carbohydrate diet and hypoglycemic protocol fingersticks every before meals at bedtime 5. BPH, and tamsulosin DNR/DNI Continue to monitor. VS,Fishbone, I+O VS, Fishbone, I+O Laboratory Tests 03/25/20 04:39 Vital Signs Date Time Temp Pulse Resp B/P (MAP) Pulse Ox O2 Delivery O2 Flow Rate FiO2 03/25/20 12:00 97.4 112 32 118/65 (82) 88 NIPPV (BIPAP/CPAP) 90 03/25/20 03:33 15.0 I&O- Last 24 Hours up to 6 AM 03/25/20 06:00 Intake Total 2230 ml Output Total 900 ml Balance 1330 ml RAMAKRISHNA LYLE MD Mar 25, 2020 15:27
[2020-03-25] MEDS: GABAPENTIN 300 MG CAP PO SCH (20:07)
[2020-03-25] MEDS: ENOXAPARIN 80MG/0.8ML SYRINGE (J1650 PER 10MG) SC SCH (20:07)
[2020-03-25] MEDS: ATORVASTATIN 20 MG TAB PO SCH (20:07)
[2020-03-25] MEDS: ASPIRIN 81 MG ENTERIC TAB PO SCH (20:08)
[2020-03-25] MEDS: LEVEMIR (INSULIN DETEMIR) 1 UNITS/0.01ML SC SCH (20:09)
[2020-03-25] MEDS ORDERED: atenoloL 50 MG TAB PO SCH (21:00)
[2020-03-25] MEDS: RAMELTEON 8 MG TAB (ROZEREM) PO PRN (23:35)
[2020-03-25] MEDS: traMADol 50 MG TAB PO PRN (23:36)
[2020-03-26] VITALS (9 sets, daily range): BP systolic 92–140; BP diastolic 55–71; O2SAT 90–91
[2020-03-26] MEDS: TIOTROPIUM INHALER/CAPSULE (SPIRIVA) INH SCH (07:41)
[2020-03-26] MEDS: FORMOTEROL FUMARATE 20 MCG/2 ML INHALATION SOLUTION (PERFOROMIST) INH SCH ×2 (07:41→20:00)
[2020-03-26] MEDS: HumaLOG INSULIN (NovoLOG) PER UNIT SC SCH ×4 (08:06→20:10)
[2020-03-26] MEDS: dexameTHASONE 4 MG/ML 1ML VIAL (J1100 PER 1MG) IV SCH ×2 (08:06→20:10)
[2020-03-26] MEDS: ENOXAPARIN 80MG/0.8ML SYRINGE (J1650 PER 10MG) SC SCH ×2 (08:06→20:12)
[2020-03-26] MEDS: TAMSULOSIN 0.4 MG CAP PO SCH (08:07)
[2020-03-26] MEDS: SODIUM CHLORIDE NASAL 0.65% SPRAY BTL (OCEAN) SCH ×3 (08:07→20:13)
[2020-03-26] MEDS: CETIRIZINE (ZyrTEC) 10 MG TAB PO SCH (08:07)
[2020-03-26] MEDS: OMEPRAZOLE 20 MG CAP PO SCH (08:07)
[2020-03-26] MEDS: ACETAMINOPHEN TAB 650MG DOSE (2X325MG) PO PRN (10:27)
--- NOTE | 2020-03-26 13:06 | IPNPDOC ---
Text Note Date of Service The patient was seen on 03/26/20. NOTE Mr Richardson was seen and examined this morning. The patient is still requiring continous BiPAP and is on 90% FiO2 with setting of 12/6 Physical examination HEENT: No JVD no stridor, or carotid bruits. CARDIOVASCULAR: S1, S2 regular rate rhythm RESPIRATORY: Diminished breath sounds,no wheezing or rales fine crepitations. no tactile fremitus. ABDOMINAL: Soft, nontender, nondistended, positive bowel sounds 4 quadrants no HSM or rebound no guarding. no abdominal bruit noted EXTREMITIES: No cyanosis or clubbing or pitting edema Labs reviewed Radiology reviewed A 74-year-old male with history diabetes and COPD, on no home oxygen presented to the emergency room due to complaints of worsening shortness of breath, found to have coronavirus -19 pneumonia and acute hypoxic respiratory failure, now requiring continuous BiPAP and in ICU care 1. Acute hypoxic respiratory failure Secondary to Cross virus 19. Pneumonia. Currently he's on BiPAP with 90% FiO2 with setting of 12/6. Despite BiPAP/Vapotherm, Patient continues to have conversational dyspnea and oxygen desaturations. He is maximized on conservative treatment with iv remdesevir, aspirin, levaquin, lovenox, decadron with no improvement, and remains hypoxic despite maximum oxygen supplementation 2. Coronavirus.19 Pneumonia: Still on BiPAP to keep saturations above 91%. Patient's inflammatory markers have improved significantly. Patient is currently on dexamethasone, remdesevir 10 day course finished on 03/24/19, on Lovenox therapeutic dose at 75 twice a day, on maximum conservative treatment with persistent hypoxia. 3. A. fib with RVR. The telemetry strip did show A. fib with RVR. 12-lead EKG did not show any A. fib. She was not able to tolerate 50 of atenolol and he became bradycardic, so it has been changed to 25. Awaiting 2-D echo 4. Diabetes type 2: On insulin sliding scale, consistent carbohydrate diet and hypoglycemic protocol fingersticks every before meals at bedtime 5. BPH, and tamsulosin DNR/DNI Continue to monitor. VS,Fishbone, I+O VS, Fishbone, I+O Vital Signs Date Time Temp Pulse Resp B/P (MAP) Pulse Ox O2 Delivery O2 Flow Rate FiO2 03/26/20 08:00 100 03/26/20 08:00 97.1 62 22 98/71 (80) 90 HVNI-Vapotherm 40.0 I&O- Last 24 Hours up to 6 AM 03/26/20 06:00 Intake Total 2725 ml Output Total 1700 ml Balance 1025 ml RAMAKRISHNA LYLE MD Mar 26, 2020 13:06
--- NOTE | 2020-03-26 14:37 | ECHO ---
DATE OF PROCEDURE: 03/26/2020 Age: 74 Gender: Male Height: 71 inches Weight: 171 pounds Body surface area: PATIENT LOCATION: Inpatient ICU, Room 3205. REFERRING PHYSICIAN: Mamadou Wyman M.D. INDICATION: Abnormal EKG. MEASUREMENTS: 2D Measurements: RV 4.0 cm LV 4.6 cm Septum 1.2 cm Posterior wall 1.2 cm Aortic Root 3.3 cm LA 4.2 cm LVEF 65% Doppler Measurements: AV 1.0 m/s LVOT 0.8 m/s MV-E 32, A 42, E/A ratio 0.8 Early mitral deceleration time 150 msec E prime medial 4.6, A prime medial 8, E prime lateral 7.4 Average E/E prime ratio 5.3/PCWP 8.5 mmHg PV 0.7 m/s Pulmonary artery acceleration time 100 msec RVSP 37 mmHg IVC 1.4 cm COMMENTS: Sinus rhythm without intraventricular conduction disturbance. Technically difficult study, but some diagnostically useful information was still obtained. M-mode and two-dimensional echocardiography was performed with pulse, continuous wave, color flow, and tissue Doppler studies. Borderline concentric left ventricular hypertrophy with localized proximal inferior akinesis, yet preserved global resting systolic function. Mildly dilated left atrium with grade 1 LV diastolic dysfunction, but currently normal estimated mean left atrial pressure. Right heart chamber sizes were upper limits of normal with normal right ventricular free wall motion and Doppler evidence of mild pulmonary hypertension. Somewhat reduced IVC size with normal respiratory collapse suggestive of a somewhat low central venous pressure. Normal aortic dimensions. Aortic valvular sclerosis without stenosis and possibly trace insufficiency. Mild degenerative changes of his mitral valve apparatus with adequate leaflet excursion and no posterior systolic buckling, but very mild to mild insufficiency. Normal appearing tricuspid valve with mild insufficiency (physiologic). No apparent intracardiac mass or pericardial effusion. MTDD
--- NOTE | 2020-03-26 19:11 | ECGEPIP ---
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
--- NOTE | 2020-03-26 19:17 | ECGEPIP ---
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
--- NOTE | 2020-03-26 19:19 | ECGEPIP ---
[facility] Test Date: 2020-03-25 Pat Name: NAINA DENNIS Department: Room: [place] [address] Gender: Male [place] Technician: NOLA : 1945 Requested By: RAMAKRISHNA Syed Order Number: [id number] Reading MD: Cornelia Enrique Measurements Intervals [place] Rate: 104 P: NM: 0 QRS: -28 QRSD: 101 T: 113 QT: 309 QTc: 408 Interpretive Statements POOR QUALITY RECORDING PROBABLY SINUS RHYTHM WITH PAC'S, CANNOT RULE OUT ATRIAL FIBRILLATION MODERATE VOLTAGE CRITERIA FOR LVH, CONSIDER NORMAL VARIANT INFERIOR MYOCARDIAL INFARCTION, OLD SIMILAR TO 16:01 SAME DAY BUT FOR QUESTIONABLE RHYTHM CHANGE Electronically Signed on 03-26-2020 19:19:20 EST by Cornelia Enrique
[2020-03-26] MEDS: LEVEMIR (INSULIN DETEMIR) 1 UNITS/0.01ML SC SCH (20:10)
[2020-03-26] MEDS: atenoloL 25 MG TAB PO SCH (20:12)
[2020-03-26] MEDS: ASPIRIN 81 MG ENTERIC TAB PO SCH (20:12)
[2020-03-26] MEDS: GABAPENTIN 300 MG CAP PO SCH (20:12)
[2020-03-26] MEDS: ATORVASTATIN 20 MG TAB PO SCH (20:13)
[2020-03-27] VITALS (8 sets, daily range): BP systolic 102–125; BP diastolic 62–73; O2SAT 92
[2020-03-27 05:13] LABS: BASO % 0.1 % (0.0-1.0); HEMATOCRIT 47.6 % (42.0-52.0); HEMOGLOBIN 15.7 g/dl (13.5-17.5); LYMPH # 0.3 10^3/uL (1.5-5.0); LYMPH % 1.8 % (24.0-44.0); MEAN CORPUSCULAR HEMOGLOBIN 29.3 pg (27.0-33.0); MEAN CORPUSCULAR VOLUME 88.8 fl (80.0-96.0); MONO # 0.4 10^3/uL (0.0-0.8); MONO % 2.2 % (0.0-5.0); NEUTROPHILS # 15.7 10^3/uL (1.5-8.5); NEUTROPHILS % 94.5 % (36.0-66.0); PLATELET COUNT, AUTOMATED 191 10^3/uL (150-450); RED BLOOD COUNT 5.36 10^6/uL (4.30-6.10); WHITE BLOOD COUNT 16.6 10^3/uL (4.0-10.0)
[2020-03-27 05:35] LABS: D-DIMER QUANT 877.01 ng/ml (<500)
[2020-03-27 05:38] LABS: ALBUMIN 2.3 GM/DL (3.2-5.2); BILIRUBIN,TOTAL 0.8 MG/DL (0.2-1.0); C REACTIVE PROTEIN QUANTITATIV 1.83 MG/DL (0.00-0.30); CALCIUM LEVEL 8.2 MG/DL (8.8-10.2); CREATININE FOR GFR 1.4 MG/DL (0.70-1.30); GLOMERULAR FILTRATION RATE 52.5 (>42); POTASSIUM SERUM 4.9 MEQ/L (3.5-5.1); TOTAL PROTEIN 6.4 GM/DL (6.4-8.2)
[2020-03-27] MEDS: FORMOTEROL FUMARATE 20 MCG/2 ML INHALATION SOLUTION (PERFOROMIST) INH SCH ×2 (08:00→19:55)
[2020-03-27] MEDS: OMEPRAZOLE 20 MG CAP PO SCH (08:10)
[2020-03-27] MEDS: TAMSULOSIN 0.4 MG CAP PO SCH (08:10)
[2020-03-27] MEDS: CETIRIZINE (ZyrTEC) 10 MG TAB PO SCH (08:11)
[2020-03-27] MEDS: ENOXAPARIN 80MG/0.8ML SYRINGE (J1650 PER 10MG) SC SCH ×2 (08:12→21:36)
[2020-03-27] MEDS: HumaLOG INSULIN (NovoLOG) PER UNIT SC SCH ×4 (08:13→21:00)
[2020-03-27] MEDS: dexameTHASONE 4 MG/ML 1ML VIAL (J1100 PER 1MG) IV SCH ×2 (08:13→21:35)
[2020-03-27] MEDS: SODIUM CHLORIDE NASAL 0.65% SPRAY BTL (OCEAN) SCH ×3 (08:22→21:37)
[2020-03-27] MEDS: TIOTROPIUM INHALER/CAPSULE (SPIRIVA) INH SCH (08:24)
--- NOTE | 2020-03-27 12:23 | IPNPDOC ---
Text Note Date of Service The patient was seen on 03/27/20. NOTE Mr Richardson was seen and examined this morning. The patient is still requiring continous BiPAP and is on 95% FiO2 with setting of 12/6 Physical examination HEENT: No JVD no stridor, or carotid bruits. CARDIOVASCULAR: S1, S2 regular rate rhythm RESPIRATORY: Diminished breath sounds,no wheezing or rales fine crepitations. no tactile fremitus. ABDOMINAL: Soft, nontender, nondistended, positive bowel sounds 4 quadrants no HSM or rebound no guarding. no abdominal bruit noted EXTREMITIES: No cyanosis or clubbing or pitting edema Labs reviewed Radiology reviewed A 74-year-old male with history diabetes and COPD, on no home oxygen presented to the emergency room due to complaints of worsening shortness of breath, found to have coronavirus -19 pneumonia and acute hypoxic respiratory failure, now requiring continuous BiPAP and in ICU care. He was maximized on conservative treatment with iv remdesevir, levaquin, lovenox, decadron with no improvement, and remains hypoxic despite maximum oxygen supplementation. . He is participating in pronating and clinically is doing better and is stable but still requiring 90 to 100% FiO2. . She has been on therapeutic dose of Lovenox because of a high possibility of pulmonary embolism, but we have not been able to get a CTA as of his high oxygen requirements. 1. Acute hypoxic respiratory failure Secondary to Cross virus 19. Pneumonia. Currently he's on BiPAP with 90% FiO2 with setting of 12/6. Despite BiPAP/Vapotherm, Patient continues to have conversational dyspnea and oxygen desaturations. He was maximized on conservative treatment with iv remdesevir, levaquin , (both of which have been finished), lovenox, decadron with no improvement, and remains hypoxic despite maximum oxygen supplementation. 2. Coronavirus.19 Pneumonia: Still on BiPAP with FiO2 between 90 and 100% to keep saturations above 91%. Patient's inflammatory markers have improved significantly. Patient is currently on dexamethasone, remdesevir 10 day course finished on 03/24/19, on Lovenox therapeutic dose at 75 twice a day, on maximum conservative treatment with persistent hypoxia. 3. A. fib with RVR. The telemetry strip did show A. fib with RVR. 12-lead EKG did not show any A. fib. She was not able to tolerate 50 of atenolol and he became bradycardic, so it has been changed to 25. Awaiting 2-D echo 4. Diabetes type 2: On insulin sliding scale, consistent carbohydrate diet and hypoglycemic protocol fingersticks every before meals at bedtime 5. BPH, and tamsulosin DNR/DNI Continue to monitor. VS,Fishbone, I+O VS, Fishbone, I+O Laboratory Tests 03/27/20 04:50 Vital Signs Date Time Temp Pulse Resp B/P (MAP) Pulse Ox O2 Delivery O2 Flow Rate FiO2 03/27/20 11:40 74 90 NIPPV (BIPAP/CPAP) 95 03/27/20 10:34 40.0 03/27/20 08:00 96.5 24 102/62 (75) I&O- Last 24 Hours up to 6 AM 03/27/20 06:00 Intake Total 1600 ml Output Total 1920 ml Balance -320 ml RAMAKRISHNA LYLE MD Mar 27, 2020 12:23
[2020-03-27] MEDS: LEVEMIR (INSULIN DETEMIR) 1 UNITS/0.01ML SC SCH (21:36)
[2020-03-27] MEDS: GABAPENTIN 300 MG CAP PO SCH (21:36)
[2020-03-27] MEDS: ASPIRIN 81 MG ENTERIC TAB PO SCH (21:36)
[2020-03-27] MEDS: ATORVASTATIN 20 MG TAB PO SCH (21:36)
[2020-03-27] MEDS: atenoloL 25 MG TAB PO SCH (21:37)
[2020-03-28] VITALS (10 sets, daily range): BP systolic 98–138; BP diastolic 60–76
[2020-03-28] MEDS: ACETAMINOPHEN TAB 650MG DOSE (2X325MG) PO PRN (06:16)
[2020-03-28] MEDS: ENOXAPARIN 80MG/0.8ML SYRINGE (J1650 PER 10MG) SC SCH ×2 (08:10→20:01)
[2020-03-28] MEDS: dexameTHASONE 4 MG/ML 1ML VIAL (J1100 PER 1MG) IV SCH ×2 (08:10→20:01)
[2020-03-28] MEDS: CETIRIZINE (ZyrTEC) 10 MG TAB PO SCH (08:10)
[2020-03-28] MEDS: TAMSULOSIN 0.4 MG CAP PO SCH (08:10)
[2020-03-28] MEDS: SODIUM CHLORIDE NASAL 0.65% SPRAY BTL (OCEAN) SCH ×3 (08:11→20:01)
[2020-03-28] MEDS: OMEPRAZOLE 20 MG CAP PO SCH (08:11)
[2020-03-28] MEDS: HumaLOG INSULIN (NovoLOG) PER UNIT SC SCH ×4 (08:11→21:00)
[2020-03-28] MEDS: FORMOTEROL FUMARATE 20 MCG/2 ML INHALATION SOLUTION (PERFOROMIST) INH SCH ×2 (09:19→20:00)
[2020-03-28] MEDS: TIOTROPIUM INHALER/CAPSULE (SPIRIVA) INH SCH (09:19)
[2020-03-28] MEDS: traMADol 50 MG TAB PO PRN ×2 (11:13→21:21)
--- NOTE | 2020-03-28 15:30 | IPNPDOC ---
Subjective Date Seen The patient was seen on 03/28/20. Subjective Chief Complaint/HPI Mr. Richardson is a 74-year-old male with COPD and diabetes mellitus who is here for acute hypoxic respiratory failure 2/2 COVID PNA. Overnight, he kept pulling his bipap off. This morning, he is fatigued and did not sleep well. He is still requiring BiPap Objective Physical Examination General Exam: Positive: Cooperative Eye Exam: Positive: EOMI; Negative: Sclera icteric ENT Exam: Positive: Atraumatic Neck Exam: Positive: Supple Chest Exam: Positive: Rhonchi Heart Exam: Positive: Rate Normal, Regular Rhythm Abdomen Exam: Positive: Normal bowel sounds, Soft, Tenderness (mild periumbilical tenderness) Extremity Exam: Negative: Edema Skin Exam: Positive: Nl turgor and temperature Neuro Exam: Positive: Cranial Nerves 3-12 NL Psych Exam: Positive: Oriented x 3 Assessment /Plan Assessment Mr. Richardson is a 74-year-old male with COPD and diabetes mellitus who is here with acute hypoxic respiratory failure 2/2 COVID pneumonia. He was already completed a course of remdesivir and levaquin. Continues on Lovenox and Decadron. Oxygen requirements have escalated to BiPAP. Continue current therapy and proning. Plan/VTE VTE Prophylaxis Ordered?: Yes Plan 1. Acute hypoxic respiratory failure 2/2 COVID PNA -Completed course of Remdesivir and Levofloxain -Continues on Dexamethasone and full dose Lovenox -On BiPAP -Continue proning and supportive care 2. Atrial fibrillation with RVR -Rate control with atenolol 25mg qHS (50mg qHS made patient bradycardic) -On full dose Lovenox for anticoagulation 3. Diabetes mellitus -Sliding scale insulin -Carbohydrate consistent diet 4. BPH -Tamsulosin 5. DVT ppx -Full dose Lovenox VS, I&O, 24H, Fishbone Vital Signs/I&O Vital Signs Date Time Temp Pulse Resp B/P (MAP) Pulse Ox O2 Delivery O2 Flow Rate FiO2 03/28/20 12:00 97.0 74 30 102/67 (79) 92 NIPPV (BIPAP/CPAP) 100 03/28/20 11:43 40.0 I&O- Last 24 Hours up to 6 AM 03/28/20 06:00 Intake Total 850 ml Output Total 925 ml Balance -75 ml Laboratory Data 24H LABS Laboratory Tests 2 03/27/20 16:19: Bedside Glucose (Misc Panel) 200H 03/27/20 21:41: Bedside Glucose (Misc Panel) 164H 03/28/20 07:47: Bedside Glucose (Misc Panel) 179H 03/28/20 10:46: Bedside Glucose (Misc Panel) 228H 03/28/20 11:38: Urine Color YELLOW, Urine Appearance CLOUDYH, Urine pH 5.0, Urine Specific [place] 1.020, Urine Protein 1+H, Urine Glucose (UA) NEGATIVE, Urine Ketones NEGATIVE, Urine Blood 3+H, Urine Nitrite NEGATIVE, Urine Bilirubin NEGATIVE, Urine Urobilinogen 0.2, Urine Leukocyte Esterase NEGATIVE, Urine WBC (Auto) 2, Urine RBC (Auto) TNTCH, Urine Hyaline Casts (Auto) 0, Urine Bacteria (Auto) 2+H, Urine Squamous Epithelial Cells 0, Urine Mucus (Auto) SMALL, Urine Sperm (Auto) MARNI FRIEDMAN DO Mar 28, 2020 15:30
[2020-03-28] MEDS: atenoloL 25 MG TAB PO SCH (20:00)
[2020-03-28] MEDS: ATORVASTATIN 20 MG TAB PO SCH (20:00)
[2020-03-28] MEDS: LEVEMIR (INSULIN DETEMIR) 1 UNITS/0.01ML SC SCH (20:01)
[2020-03-28] MEDS: ASPIRIN 81 MG ENTERIC TAB PO SCH (20:01)
[2020-03-28] MEDS: GABAPENTIN 300 MG CAP PO SCH (20:01)
[2020-03-29] VITALS (11 sets, daily range): BP systolic 100–124; BP diastolic 60–71; O2SAT 88
[2020-03-29] MEDS: RAMELTEON 8 MG TAB (ROZEREM) PO PRN ×2 (01:25→20:19)
[2020-03-29 05:35] LABS: HEMATOCRIT 47.6 % (42.0-52.0); HEMOGLOBIN 15.8 g/dl (13.5-17.5); MEAN CORPUSCULAR HEMOGLOBIN 29.9 pg (27.0-33.0); MEAN CORPUSCULAR HGB CONC 33.2 g/dl (32.0-36.5); PLATELET COUNT, AUTOMATED 202 10^3/uL (150-450); RED BLOOD COUNT 5.29 10^6/uL (4.30-6.10); WHITE BLOOD COUNT 19.1 10^3/uL (4.0-10.0)
[2020-03-29 06:06] LABS: C REACTIVE PROTEIN QUANTITATIV 1.09 MG/DL (0.00-0.30); CALCIUM LEVEL 8.8 MG/DL (8.8-10.2); CREATININE FOR GFR 1.95 MG/DL (0.70-1.30); GLOMERULAR FILTRATION RATE 35.8 (>42); POTASSIUM SERUM 5.4 MEQ/L (3.5-5.1)
[2020-03-29] MEDS: TIOTROPIUM INHALER/CAPSULE (SPIRIVA) INH SCH (08:00)
[2020-03-29] MEDS: FORMOTEROL FUMARATE 20 MCG/2 ML INHALATION SOLUTION (PERFOROMIST) INH SCH ×2 (09:00→21:15)
[2020-03-29] MEDS: HumaLOG INSULIN (NovoLOG) PER UNIT SC SCH ×4 (10:38→20:05)
[2020-03-29] MEDS: ENOXAPARIN 80MG/0.8ML SYRINGE (J1650 PER 10MG) SC SCH ×2 (10:38→20:18)
[2020-03-29] MEDS: CETIRIZINE (ZyrTEC) 10 MG TAB PO SCH (10:39)
[2020-03-29] MEDS: TAMSULOSIN 0.4 MG CAP PO SCH (10:39)
[2020-03-29] MEDS: dexameTHASONE 4 MG/ML 1ML VIAL (J1100 PER 1MG) IV SCH ×2 (10:39→20:19)
[2020-03-29] MEDS: OMEPRAZOLE 20 MG CAP PO SCH (10:39)
[2020-03-29] MEDS: SODIUM CHLORIDE NASAL 0.65% SPRAY BTL (OCEAN) SCH ×3 (10:40→20:23)
[2020-03-29] MEDS: traMADol 50 MG TAB PO PRN ×2 (12:24→20:22)
[2020-03-29 12:43] LABS: APPEARANCE, URINE MANUAL TURBID (CLEAR); COLOR, URINE MANUAL BROWN (YELLOW)
[2020-03-29 12:44] LABS: BLOOD URINE MANUAL POSITIVE (NEGATIVE)
[2020-03-29 12:45] LABS: BILIRUBIN, URINE MANUAL NEGATIVE (NEGATIVE); GLUCOSE, URINE (UA) MANUAL NEGATIVE (NEGATIVE); KETONE, URINE MANUAL NEGATIVE (NEGATIVE); NITRITE, URINE MANUAL NEGATIVE (NEGATIVE); PROTEIN, URINE MANUAL 2+ mg/dL (NEGATIVE); SPECIFIC GRAVITY,URINE MANUAL 1.025 (1.002-1.035); UROBILINOGEN, URINE MANUAL NORMAL (NORMAL)
[2020-03-29 12:46] LABS: LEUKOCYTE ESTERASE, URINE MAN POSITIVE (NEGATIVE)
[2020-03-29 12:49] LABS: OSMOLALITY URINE 665 MOSM/KG (500-800)
[2020-03-29 12:51] LABS: RBC, URINE TNTC /hpf (0-3)
[2020-03-29 12:53] LABS: BACTERIA, URINE MOD AMOUNT; CREATININE,RANDOM URINE 99.4 MG/DL; HYALINE CAST, URINE NONE SEEN /lpf (0-1); MUCUS, URINE SMALL AMOUNT (NEGATIVE); SODIUM,RANDOM URINE 16 MEQ/L; SQUAMOUS EPITHELIAL CELL URINE NONE SEEN /hpf (SMALL AMT)
[2020-03-29 12:54] LABS: URIC ACID CRYSTALS, URINE SMALL AMOUNT /hpf
[2020-03-29 13:02] LABS: CALCIUM LEVEL 8.6 MG/DL (8.8-10.2); CREATININE FOR GFR 1.88 MG/DL (0.70-1.30); GLOMERULAR FILTRATION RATE 37.3 (>42); POTASSIUM SERUM 5.3 MEQ/L (3.5-5.1)
[2020-03-29] MEDS ORDERED: SODIUM CHLORIDE 0.9% 1000ML IV ONE (13:30)
--- NOTE | 2020-03-29 14:16 | IPNPDOC ---
Subjective Date Seen The patient was seen on 03/29/20. Subjective Chief Complaint/HPI Mr. Richardson is a 74-year-old male with COPD and diabetes mellitus who is here for acute hypoxic respiratory failure 2/2 COVID PNA. Yesterday, he had urinary retention. Mullen was placed, and 800cc of urine was released. Placement was difficult and they had to use coude catheter. UA demonstrated blood which was most likely from Mullen trauma. This afternoon, he feel fatigued. He has been alternating between vapotherm and Bipap 02/15. He has been about 2 hours on and off Bipap. He reports a good appetite, but he does not like the food he has been given. Urine appears brown today. Objective Physical Examination General Exam: Positive: Cooperative Eye Exam: Positive: EOMI; Negative: Sclera icteric ENT Exam: Positive: Atraumatic Neck Exam: Positive: Supple Chest Exam: Positive: Rhonchi Heart Exam: Positive: Rate Normal, Regular Rhythm Abdomen Exam: Positive: Normal bowel sounds, Soft, Tenderness (mild periumbilical tenderness) Extremity Exam: Negative: Edema Skin Exam: Positive: Nl turgor and temperature Neuro Exam: Positive: Cranial Nerves 3-12 NL Psych Exam: Positive: Oriented x 3 Assessment /Plan Assessment Mr. Richardson is a 74-year-old male with COPD and diabetes mellitus who is here with acute hypoxic respiratory failure 2/2 COVID pneumonia. He was already completed a course of remdesivir and levaquin. Continues on Lovenox and Decadron. Oxygen requirements have escalated to NIPPV. Continue current therapy and proning. Plan/VTE VTE Prophylaxis Ordered?: Yes Plan 1. Acute hypoxic respiratory failure 2/2 COVID PNA -Completed course of Remdesivir and Levofloxain -Continues on Dexamethasone and full dose Lovenox -On BiPAP, but not tolerating it well. Wants to do a trial of CPAP. -Continue proning and supportive care 2. Atrial fibrillation with RVR -Rate control with atenolol 25mg qHS (50mg qHS made patient bradycardic) -On full dose Lovenox for anticoagulation 3. Diabetes mellitus -Sliding scale insulin -Carbohydrate consistent diet 4. BPH -Tamsulosin 5. Acute urinary retention -Yesterday had 800CC retained -On Mullen and tamsulosin 6. AIME -Creatinine elevated. FeNA is 0.2% indicated pre-renal. Urine is brownish, but FeNA is suggestive of pre-renal instead of intrinsic. Requested urine culture -He has had poor oral intake. Encourage ensure with meals -Cautious with fluids due to his acute hypoxic respiratory failure. Will give 500mL NS and repeat BMP tomorrow 7. DVT ppx -Full dose Lovenox VS, I&O, 24H, Fishbone Vital Signs/I&O Vital Signs Date Time Temp Pulse Resp B/P (MAP) Pulse Ox O2 Delivery O2 Flow Rate FiO2 03/29/20 12:54 97.2 68 24 100/60 88 NIPPV (BIPAP/CPAP) 40.0 100 I&O- Last 24 Hours up to 6 AM 03/29/20 06:00 Intake Total 1560 ml Output Total 1415 ml Balance 145 ml Laboratory Data 24H LABS Laboratory Tests 2 03/28/20 16:41: Bedside Glucose (Misc Panel) 140H 03/28/20 19:47: Bedside Glucose (Misc Panel) 156H 03/29/20 05:04: Nucleated Red Blood Cells % (auto) 0.0, D-Dimer, Quantitative 794.69H, Anion Gap 8, Glomerular Filtration Rate 35.8L, Calcium Level 8.8, Ferritin 1049H, C- Reactive Protein, Quantitative 1.09H 03/29/20 07:32: Bedside Glucose (Misc Panel) 160H 03/29/20 12:10: Bedside Urine Color (LAB) BROWNH, Bedside Urine Appearance (LAB) TURBIDH, Bedside Urine pH (LAB) 5.0, Bedside Urine Specific [place] (LAB 1.025, Bedside Urine Protein (LAB) 2+H, Bedside Urine Glucose (UA) NEGATIVE, Bedside Urine Ketones (LAB) NEGATIVE, Bedside Urine Blood POSITIVEH, Bedside Urine Nitrite (LAB) NEGATIVE, Bedside Urine Bilirubin (LAB) NEGATIVE, Bedside Urine Urobilinogen (LAB) NORMAL, Bedside Urine Leukocyte Esterase (L POSITIVEH, Urine Sediment Examination UNSPUN, Urine RBC TNTCH, Urine WBC 3-5H, Urine Squamous Epithelial Cells NONE SEEN, Urine Uric Acid Crystals SMALL AMOUNTH, Urine Bacteria MOD AMOUNTH, Urine Hyaline Casts NONE SEEN, Urine Mucus SMALL AMOUNTH, Urine Random Osmolality 665, Urine Random Creatinine 99.4, Urine Random Sodium 16 03/29/20 12:17: Bedside Glucose (Misc Panel) 168H, Anion Gap 12, Glomerular Filtration Rate 37.3L, Osmolality 317H, Calcium Level 8.6L CBC/BMP Laboratory Tests 03/29/20 05:04 03/29/20 12:17 MARNI FRIEDMAN DO Mar 29, 2020 14:16
[2020-03-29] MEDS: LEVEMIR (INSULIN DETEMIR) 1 UNITS/0.01ML SC SCH (20:18)
[2020-03-29] MEDS: atenoloL 25 MG TAB PO SCH (20:21)
[2020-03-29] MEDS: ASPIRIN 81 MG ENTERIC TAB PO SCH (20:22)
[2020-03-29] MEDS: ATORVASTATIN 20 MG TAB PO SCH (20:22)
[2020-03-29] MEDS: GABAPENTIN 300 MG CAP PO SCH (20:22)
[2020-03-30] VITALS (8 sets, daily range): BP systolic 103–140; BP diastolic 57–69; O2SAT 89
[2020-03-30] MEDS: ACETAMINOPHEN TAB 650MG DOSE (2X325MG) PO PRN ×2 (01:42→12:05)
[2020-03-30 04:30] LABS: HEMATOCRIT 42.8 % (42.0-52.0); HEMOGLOBIN 13.9 g/dl (13.5-17.5); MEAN CORPUSCULAR HEMOGLOBIN 29.1 pg (27.0-33.0); MEAN CORPUSCULAR HGB CONC 32.5 g/dl (32.0-36.5); MEAN CORPUSCULAR VOLUME 89.7 fl (80.0-96.0); PLATELET COUNT, AUTOMATED 178 10^3/uL (150-450); RED BLOOD COUNT 4.77 10^6/uL (4.30-6.10); WHITE BLOOD COUNT 21.8 10^3/uL (4.0-10.0)
[2020-03-30 04:56] LABS: CALCIUM LEVEL 8.2 MG/DL (8.8-10.2); CREATININE FOR GFR 2.05 MG/DL (0.70-1.30); GLOMERULAR FILTRATION RATE 33.8 (>42); POTASSIUM SERUM 5.6 MEQ/L (3.5-5.1)
[2020-03-30] MEDS: HumaLOG INSULIN (NovoLOG) PER UNIT SC SCH ×4 (08:05→20:31)
[2020-03-30] MEDS: TAMSULOSIN 0.4 MG CAP PO SCH (08:06)
[2020-03-30] MEDS: SODIUM CHLORIDE NASAL 0.65% SPRAY BTL (OCEAN) SCH ×3 (08:06→21:00)
[2020-03-30] MEDS: CETIRIZINE (ZyrTEC) 10 MG TAB PO SCH (08:06)
[2020-03-30] MEDS: OMEPRAZOLE 20 MG CAP PO SCH (08:06)
[2020-03-30] MEDS: ENOXAPARIN 80MG/0.8ML SYRINGE (J1650 PER 10MG) SC SCH (08:06)
[2020-03-30] MEDS: dexameTHASONE 4 MG/ML 1ML VIAL (J1100 PER 1MG) IV SCH ×2 (08:07→20:32)
[2020-03-30] MEDS: FORMOTEROL FUMARATE 20 MCG/2 ML INHALATION SOLUTION (PERFOROMIST) INH SCH ×2 (08:44→20:37)
[2020-03-30] MEDS: TIOTROPIUM INHALER/CAPSULE (SPIRIVA) INH SCH (08:45)
[2020-03-30] MEDS ORDERED: DEXTROSE 50% 50 ML VIAL IV ONE (10:15)
[2020-03-30] MEDS ORDERED: NS 1,000 ML IV SCH (10:15)
[2020-03-30] MEDS ORDERED: SODIUM CHLORIDE 0.9% 1000ML IV ONE (10:15)
[2020-03-30] MEDS ORDERED: CALCIUM GLUCONATE 1,000 MG in D5W MINI-BAG PLUS 100 ML IV ONE (10:15)
[2020-03-30] MEDS ORDERED: LEVEMIR (INSULIN DETEMIR) 1 UNITS/0.01ML SC ONE (10:15)
[2020-03-30] MEDS ORDERED: HumuLIN R (REGULAR) INSULIN (NovoLIN R) **100U/ML** PER UNIT IV STA (10:38)
[2020-03-30] MEDS ORDERED: EXCEDRIN MIGRAINE TABLET PO PRN (11:45)
[2020-03-30] MEDS: traMADol 50 MG TAB PO PRN (12:09)
--- NOTE | 2020-03-30 12:10 | REP ---
INDICATION: covid +, on vapotherm. COMPARISON: Comparison chest x-ray March 18, 2020. TECHNIQUE: Portable upright AP chest radiograph. FINDINGS: Monitoring electrodes are visible. Interstitial markings are increased in the bases, left more so than right. Markings in the left base are more focal and increased compared to the March 18, 2020 study. Pleural angles are sharp. Heart is not enlarged. Pulmonary vasculature is not increased. No bony abnormality.. IMPRESSION: Increased interstitial markings more prominent on the left consistent with left base infiltrate.. <Electronically signed by Jean-Pierre Hassan > 03/30/20 [id number]
[2020-03-30 13:40] LABS: CALCIUM LEVEL 8.3 MG/DL (8.8-10.2); CREATININE FOR GFR 1.81 MG/DL (0.70-1.30); POTASSIUM SERUM 5.4 MEQ/L (3.5-5.1)
--- NOTE | 2020-03-30 14:50 | IPNPDOC ---
Text Note Date of Service The patient was seen on 03/30/20. NOTE Subjective: A shunt was examined and seen at bedside today morning. He is still on Vapotherm 40 L FiO2 of 100. No acute events overnight, reports good appetite. Noted in 6 into 6 large hematoma on the left arm. Physical exam: Gen. patient is cooperative, no acute distress Head and neck: Pupils reactive to light, no JVD Cardiovascular: S1-S2 normal, no murmur Respiratory: Diminished breath sounds. 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 He was maximized on conservative treatment with iv remdesevir, levaquin, lovenox, decadron with no improvement, and remains hypoxic despite maximum oxygen supplementation. . He is p articipating in pronating and but still requiring 40 L and 100% FiO2 on Vapotherm. Couple of nights ago he had urinary retention and had a Mullen placed in. Acute hypoxic respiratory failure secondary to covid 19 pneumonia: - Patient is requiring 40 L and 100% FiO2 on Vapotherm. Yesterday he was on and off of BiPAP as well. Will try to gradually titrating down. - Despite BiPAP/report on patient continues to have dyspnea and oxygen desaturations. - Patient completed his remdesivir on 03/22/20 - He is on day 14 of dexamethasone 6 MG twice a day - Given his hematoma on the left arm will decrease the Lovenox to 40 MG, warm compression and hand elevation to allow for drainage of the hematoma. - His 2-D echo was reported back and showed normal right lung chambers and excluded PE so will decrease his dose of Lovenox to 40 MG. - Patient's white count is elevated today 21.8 Will repeat his chest x-ray and pro-calcitonin. AK I: - Patient's BUN is elevated 112 from 101, creatinine 2.05 from 1.88. - His FENa 0.2% prerenal. - Will give him 500 mL of bolus normal saline - And will start him on normal saline 100 mls/hour X 1 bag. - Will repeat BNP at noon. Hyperkalemia: - Patient has an elevated potassium of 5.6. - Will start him on calcium gluconate - Will give 1 ampule of D50 and 8 units of insulin. - Will repeat BMP at 12 noon. A. fib with RVR: - Continue atenolol 25 mg for now. - Patient was bradycardic when he was on atenolol 50 MG. Diabetes mellitus type II: - On insulin sliding scale - Consisted carbohydrate diet - Before meals and daily at bedtime coverage - On insulin Levemir 25 units daily at bedtime ASCVD: - Will continue atorvastatin 80 mg by mouth BPH: - Continue tamsulosin DVT prophylaxis: - Lovenox 40 MG[given his recent left arm hematoma] GI prophylaxis: - On omeprazole 40 mg by mouth daily VS,Fishbone, I+O VS, Fishbone, I+O Laboratory Tests 03/30/20 04:05 03/30/20 12:56 Vital Signs Date Time Temp Pulse Resp B/P (MAP) Pulse Ox O2 Delivery O2 Flow Rate FiO2 03/30/20 12:39 97.7 63 18 120/69 91 NIPPV (BIPAP/CPAP) 100 03/30/20 12:09 40.0 I&O- Last 24 Hours up to 6 AM 03/30/20 06:00 Intake Total 3050 ml Output Total 1235 ml Balance 1815 ml GME ATTESTATION GME ATTESTATION My faculty preceptor for this patient encounter was physically present during the encounter and was fully available. All aspects of the patient interview, examination, medical decision making process, and medical care plan development were reviewed and approved by the faculty preceptor. The faculty preceptor is aware and concurs with the plan as stated in the body of this note and will attest to such by his/her cosignature. ATTENDING NOTE I, Mamadou Lyle MD, have independently examined this patient and performed my o wn physical exam, as well as reviewed the documentation and edited where necessary. I have discussed in detail with the resident / student the findings and plan of treatment as documented by the resident / student and edited their note. I agree with their findings and treatment plan and have edited their documentation. Sher Carpenter MD Mar 30, 2020 14:50 MAMADOU LYLE MD Apr 03, 2020 14:00
[2020-03-30 19:30] LABS: HEMATOCRIT 39.1 % (42.0-52.0); MEAN CORPUSCULAR HEMOGLOBIN 29.6 pg (27.0-33.0); MEAN CORPUSCULAR HGB CONC 33.2 g/dl (32.0-36.5); MEAN CORPUSCULAR VOLUME 89.1 fl (80.0-96.0); PLATELET COUNT, AUTOMATED 168 10^3/uL (150-450); RED BLOOD COUNT 4.39 10^6/uL (4.30-6.10); WHITE BLOOD COUNT 21.5 10^3/uL (4.0-10.0)
[2020-03-30] MEDS: LEVEMIR (INSULIN DETEMIR) 1 UNITS/0.01ML SC SCH (20:31)
[2020-03-30] MEDS ORDERED: ENOXAPARIN 40MG/0.4ML SYRINGE (J1650 PER 10MG) SC SCH (21:00)
[2020-03-30] MEDS: GABAPENTIN 300 MG CAP PO SCH (21:00)
[2020-03-30] MEDS ORDERED: ONDANSETRON 4MG/2ML VIAL IV PRN (22:00)
[2020-03-30] MEDS ORDERED: LORazepam 2 MG/ML VIAL IV PRN ×2 (22:00→23:15)
[2020-03-30] MEDS ORDERED: SCOPOLAMINE 1MG TRANSDERMAL PATCH TOP PRN (22:00)
[2020-03-30] MEDS ORDERED: MORPHINE 2 MG/ML 1ML VIAL (J2270) IV PRN (22:00)
[2020-03-30] MEDS ORDERED: HYOSCYAMINE SULFATE 0.125 MG SUBL TABLET PO PRN (22:00)
[2020-03-30] MEDS ORDERED: LORazepam 2 MG/ML VIAL As Ordered ONE (22:56)
--- NOTE | 2020-03-31 02:30 | IPNPDOC ---
Date Seen The patient was seen on 03/31/20. Progress Note INTERIM PROGRESS NOTE: I was called by nursing around 2100 that patient had decided to go [employer]. Per nursing, patient was fully alert and oriented when making this decision. Nursing called family in to see the patient. All orders were changed to comfort measures orders including morphine, Ativan as needed. The patient at 23:20. GME ATTESTATION ATTENDING NOTE Family Medicine Attending Note: I was present on site to supervise Chavez Garrido DO (PGY-3). We discussed the history and exam. We conferred on the assessment and plan; I agree with the note as documented. 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
--- NOTE | 2020-03-31 02:36 | DS.PDOC ---
Discharge Summary General Date of Admission Mar 13, 2020 at 15:25 Date of Discharge March 30, 2020 Primary Care Physician: Chad Browning Attending Physician: RAMAKRISHNA LYLE MD Discharge Summary PROCEDURES PERFORMED DURING STAY: [None]. ADMITTING DIAGNOSES: 1. Metabolic encephalopathy 2. Covid 19 pneumonia DISCHARGE DIAGNOSES: COMPLICATIONS/CHIEF COMPLAINT: Covid-19/Hypoxia. HISTORY OF PRESENT ILLNESS: Mr. Richardson is a 74-year-old male with COPD and diabetes mellitus who presents for altered mental status and hypoxia. He is currently a poor historian and has some difficulty hearing. I spoke to the who is able present more of the history. On March 04, he was tested for coded because his daughter was COVID positive. He had tested positive and his test and negative. He was asymptomatic until 03/08/2020, they became co nfused and not feeling well. It was worse in the evening. Then, in the past few days, he's been very lethargic and stayed in bed most of the time. There is brought to the ED today, and at room air he saturated between 80% -88%. He required 3 L to maintain saturations above 88%. When I spoke with him, he tells me that he lost 4 days. Otherwise reports dyspnea and occasional cough. He has some sharp chest pain when he coughs. He also has decreased appetite. Otherwise denies fever, headache, changes in vision, or abdominal pain. Lungs had dry crackles. Chest x-ray suspected superimposed lower lobe airspace disease. His pro-calcitonin was elevated at 1.61. Patient will be admitted for COVID pneu monia and metabolic encephalopathy HOSPITAL COURSE: The patient was admitted with confusion secondary to metabolic encephalopathy attributed to his Covid 19 pneumonia. He was treated with IV Remdesivir, Levaquin, Lovenox, Decadron with no improvement in his hypoxia. The patient required BiPAP and Vapotherm throughout his hospitalization. On 03/30/2020 the patient chose to go comfort measures and at 23:20. DISCHARGE MEDICATIONS: Please see below. ALLERGIES: Please see below. PHYSICAL EXAMINATION ON DISCHARGE: LABORATORY DATA: Please see below. IMAGING: CXR: FINDINGS: Monitoring electrodes are visible. Interstitial markings are increased in the bases, left more so than right. Markings in the left base are more focal and increased compared to the March 18, 2020 study. Pleural angles are sharp. Heart is not enlarged. Pulmonary vasculature is not increased. No bony abnormality.. IMPRESSION: Increased interstitial markings more prominent on the left consistent with left base infiltrate.. PROGNOSIS: ACTIVITY: DIET: DISCHARGE PLAN: DISPOSITION: 20 . DISCHARGE INSTRUCTIONS: n/a ITEMS TO FOLLOWUP ON ON OUTPATIENT: n/a DISCHARGE CONDITION: [Stable]. TIME SPENT ON DISCHARGE: Greater than 40 minutes. Vital Signs/I&Os Vital Signs Date Time Temp Pulse Resp B/P (MAP) Pulse Ox O2 Delivery O2 Flow Rate FiO2 03/30/20 23:00 109 80 03/30/20 22:00 28 HVNI-Vapotherm 40.0 100 03/30/20 19:51 114/65 (81) 03/30/20 12:39 97.7 I&O- Last 24 Hours up to 6 AM 03/31/20 06:00 Intake Total 2650 ml Output Total 1025 ml Balance 1625 ml Laboratory Data Labs 24H Laboratory Tests 2 03/30/20 04:05: Nucleated Red Blood Cells % (auto) 0.0, Anion Gap 8, Glomerular Filtration Rate 33.8L, Calcium Level 8.2L, Procalcitonin 0.26 03/30/20 07:55: Bedside Glucose (Misc Panel) 158H 03/30/20 11:02: Bedside Glucose (Misc Panel) 228H 03/30/20 12:56: Anion Gap 11, Glomerular Filtration Rate 39.0L, Calcium Level 8.3L 03/30/20 17:20: Bedside Glucose (Misc Panel) 208H 03/30/20 19:20: Nucleated Red Blood Cells % (auto) 0.0 03/30/20 19:48: Bedside Glucose (Misc Panel) 204H CBC/BMP Laboratory Tests 03/30/20 04:05 03/30/20 12:56 03/30/20 19:20 FSBS Laboratory Tests Test 03/30/20 07:55 03/30/20 11:02 03/30/20 17:20 03/30/20 19:48 Range/Units Bedside Glucose (Misc Panel) 158 228 208 204 83-110 MG/DL Discharge Medications Scheduled Alendronate Sodium (Alendronate Sodium) 70 Mg Tablet, 70 MG PO QWEEK, (Reported) MONDAY Aspirin (Aspirin EC) 81 Mg Tablet.dr, 81 MG PO QHS, (Reported) Atenolol (Atenolol) 25 Mg Tablet, 25 MG PO QHS, (Reported) Atorvastatin Calcium (Atorvastatin Calcium) 80 Mg Tablet, 80 MG PO QHS, (Reported) Calcium Carbonate/Vitamin D3 (Calcium 600-Vit D3 400 Tablet) 1 Each Tablet, 1 TAB PO BID, (Reported) Cetirizine HCl (Cetirizine HCl) 10 Mg Tablet, 10 MG PO DAILY, (Reported) Cholecalciferol (Vitamin D3) (Vitamin D3) 125 Mcg Capsule, 125 MCG PO DAILY, (Reported) Cyanocobalamin (Vitamin B-12) (Vitamin B-12) 2,500 Mcg Tab.subl, 2,500 MCG SL DAILY, (Reported) Gabapentin (Gabapentin) 300 Mg Capsule, 300 MG PO QHS, (Reported) Insulin Glargine,Hum.rec.anlog (Lantus Solostar) 100 Unit/1 Ml Insuln.pen, 50 UNIT SC QHS, (Reported) Magnesium Oxide (Magnesium) 250 Mg Tablet, 250 MG PO BID, (Reported) Omeprazole (Omeprazole) 40 Mg Capsule.dr, 40 MG PO DAILY, (Reported) Tamsulosin HCl (Flomax) 0.4 Mg Capsule, 0.4 MG PO DAILY, (Reported) Umeclidinium Brm/Vilanterol Tr (Anoro Ellipta 62.5-25 Mcg INH) 1 Each Blst.w.dev, 1 PUFF INH DAILY, (Reported) Scheduled PRN Nitroglycerin (Nitrostat) 0.4 Mg Tab.subl, 0.4 MG SL Q5MP PRN for CHEST PAIN, (Reported) Tramadol HCl (Tramadol HCl) 50 Mg Tablet, 50 MG PO QID PRN for PAIN, (Reported) Allergies Coded Allergies: Penicillins (Verified Allergy, Severe, anaphylaxis, 03/13/20) anaph GME ATTESTATION ATTENDING NOTE Family Medicine Attending Note: I was present on site to supervise Tamiko Sanchez. We discussed the history and exam. We conferred on the assessment and plan; I agree with the note as documented. 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
[2020-03-31 10:00] LABS: INFLUENZA A AMPLIFICATION NEGATIVE (NEGATIVE); INFLUENZA B AMPLIFICATION NEGATIVE (NEGATIVE)
--- NOTE | 2020-04-17 10:21 | CCN ---
CRITICAL CARE CONSULTATION DATE: 03/18/2020 CHIEF COMPLAINT: Hypoxemic respiratory failure. HISTORY OF PRESENT ILLNESS: Mr. Richardson is a 74-year-old male with a past medical history of COPD, diabetes, and hyperlipidemia who presented initially with hypoxemic respiratory failure. The patient was tested positive initially on March 04 after his daughter was also found to be positive for COVID-19. He had not been symptomatic until March 08 when he was noted to have some altered mental status as well as lethargy. The patient was then brought to the ED on March 13 where he was found to be hypoxic and requiring nasal cannula oxygen supplementation. He was initially admitted to the COVID Unit on where he was initially on nasal cannula oxygen and then later changed to a Venti-mask. He was then started on Dexamethasone as well as Remdesivir and antibiotics. The patient was then placed on Vapotherm and he was requiring 100% FIO2 to maintain his O2 saturations above 90%. The patient overnight was noted to have episodes of desaturation into the 70s despite being on his max Vapotherm setting. He was started on BiPAP and transferred to the ICU. On BiPAP with settings of 12/6 and 85 to 90% FIO2 he was saturating better. The patient was also given a dose of Lasix IV push yesterday. He reported feeling improved this morning on the BiPAP in terms of his dyspnea. The patient otherwise denies any chest pain and has not noticed any significant coughing or wheezing. He denies abdominal pain. No nausea or vomiting and has not had any fevers overnight. PAST MEDICAL HISTORY/PAST SURGICAL HISTORY: 1. COPD. 2. Diabetes. 3. History of CHF. 4. Hyperlipidemia. 5. Cholecystectomy. 6. Three hernia repairs. SOCIAL HISTORY: Former smoker, quit in 1989. Denies any alcohol use or other drug use. FAMILY HISTORY: Reviewed and noncontributory. HOME MEDICATIONS: 1. Alendronate. 2. Aspirin. 3. Atenolol. 4. Atorvastatin. 5. Calcium carbonate. 6. Cetirizine. 7. Vitamin D3. 8. Vitamin B12. 9. Gabapentin. 10.Insulin Glargine. 11.Magnesium. 12.Omeprazole. 13.Flomax. 14.Anoro. 15.Nitrostat p.r.n. 16.Tramadol p.r.n. ALLERGIES: Penicillin with anaphylaxis. PHYSICAL EXAMINATION: VITAL SIGNS: Temperature 96.8, pulse 55, respirations 31, blood pressure 86/51, O2 sat 97% on 90% FIO2 on BiPAP. INPUT AND OUTPUT: In: 1.6 liters, Out: 1.1 liters. GENERAL: The patient is an elderly male, he is sitting in bed and appears tachypneic. He is speaking in short sentences but he is using some accessory muscles with respiration. HEENT: Normocephalic, atraumatic. Pupils are reactive to light bilaterally. NECK: Supple. Trachea is midline. No palpable cervical adenopathy. CARDIAC: Regular rate and rhythm. Normal S1 and S2. Unable to clearly appreciate any murmurs. PULMONARY: Diminished breath sounds bilaterally with no wheezing, rales or rhonchi. There is prolonged expiration. ABDOMEN: Soft, nontender and nondistended. Positive bowel sounds. EXTREMITIES: There is no lower extremity bilaterally. LABORATORY DATA: WBC 6.0, hemoglobin 12.0, platelets are 231,000. Chemistries: Sodium is 140, potassium is 4.5, chloride is 107, bicarbonate is 24, BUN 43, creatinine 1.46, glucose 101, potassium is 8.1, magnesium 1.7, AST and ALT within normal limits. BNP 675, albumin is 2.5, procalcitonin yesterday was 0.39, repeat procalcitonin 2.79. IMAGING: Chest x-ray this morning showed some increased interstitial marking and likely chronic emphysematous changes, there is possible mild infiltrate on the left base versus atelectasis. ASSESSMENT AND PLAN: Mr. Richardson is a 74-year-old male with a past medical history of COPD, diabetes, hyperlipidemia, who presented with altered mental status and shortness of breath in the setting of COVID-19 pneumonia. The patient also with acute hypoxemic respiratory failure in the setting of his COVID-19 pneumonia requiring increasing amount of oxygen supplementation. Acute hypoxemic respiratory failure in the setting of COVID-19 pneumonia. The patient has been admitted for the past six days and was being treated with Remdesivir as well as Dexamethasone. He was also on antibiotics with Levaquin. The patient however has been requiring increasing oxygen support and was on Vapotherm at 100% FIO2 with desaturations. He was therefore placed on BiPAP overnight with improvement in his oxygenation. Continue with Remdesivir and Dexamethasone to complete a 10 day course total given his severe hypoxia. Patient's procalcitonin is increasing. He is on Levaquin for antibiotics but given the progression despite being on antibiotics, consider broadening to Vancomycin and Zosyn and then trending procalcitonin for continued deescalation. Patient's chest x-ray shows mostly chronic changes. There is a questionable infiltrate in the left base although subtle. Given his persistent hypoxia and increasing D-Dimer, would consider starting patient on full dose Lovenox for anticoagulation. He was on prophylactic Lovenox initially at 40 mg daily. Continue patient with BiPAP at 12/6 and continue weaning down his FIO2. He can go on to Vapotherm during the day and on BiPAP as needed for desaturation, respiratory distress or at night. Continue with inhaler and bronchodilators. DVT prophylaxis, Lovenox increased to b.i.d. but consider full-dose anticoagulation unless contraindicated. CODE STATUS: DNR/DNI. Total critical care time spent including procedures approximately 1 hour and 30 minutes.
--- NOTE | 2020-04-17 11:07 | CCN ---
CRITICAL CARE PROGRESS NOTE DATE: 03/19/2020 SUBJECTIVE: The patient was seen and examined this morning during bedside rounds. The patient was on BIPAP overnight until midnight when he took it off and refused placement. He was on Vapotherm during most of the day and was again on Vapotherm overnight. With the Vapotherm, however at 100% FiO2, he did have episodes of desaturation this morning. The patient had expressed to the nurse earlier in the morning that he was frustrated and was considering leaving AMA. After further discussion with the patient, he did agree to continue with treatment and remaining in the hospital. He has considered home Hospice in the past as the patient is frustrated about his hospitalization and his slow recovery. He is willing to go back on the BIPAP during the day as needed as well as using it at night. The patient otherwise reports his symptoms are unchanged. He does have some shortness of breath and dyspnea with exertion. He denies any fevers, no chest pain. He has not had any lower extremity edema. OBJECTIVE: PHYSICAL EXAMINATION: VITAL SIGNS: Temperature 96.4, pulse 80, respirations 23, blood pressure 119/64. 02 sat 91% on Vapotherm at 100% FiO2. INTAKE AND OUTPUT: In 2.1, out 725 mL. GENERAL APPEARANCE: The patient is an elderly male who is sitting in the bed. He is able to speak in short sentences. He does appear tachypneic with exertion. He does not appear to be using accessory muscles for respirations. HEENT: Normocephalic and atraumatic. Pupils are reactive to light bilaterally. NECK: Supple. Trachea is midline. Unable to palpate cervical adenopathy. CARDIAC: Regular rate and rhythm, normal S1, S2. Unable to auscultate any murmurs. PULMONARY: Diminished breath sounds bilaterally with prolonged expiration and few crackles at the bases. There is no wheezing or rhonchi. ABDOMEN: Soft, nontender, nondistended. EXTREMITIES: There is no lower extremity edema bilaterally. There is no calf tenderness. LABORATORY STUDIES: WBC 9.1, hemoglobin 12.4, platelets are 243. Chemistries: Sodium is 134, potassium 4.1, chloride is 109, bicarbonate is 20, BUN 50, creatinine is 1.34, glucose is 279. CRP 15.50. Ferratin increasing to 1018. Procalcitonin increased to 2.79. D-dimer is 956. Mycoplasma IgG positive, IgA negative. IMAGING: Lower extremity duplex is negative. ASSESSMENT AND PLAN: Mr. Richardson is an 74-year-old male with a past medical history of COPD and diabetes who presented with complaints of altered mental status and shortness of breath. Patient with acute hypoxemic respiratory failure in the setting of COVID-19. He was started on Remdesivir and Dexamethasone, however he has had worsening hypoxia and required increasing amounts of oxygen supplementation with Vapotherm on 100% FiO2 as well as BIPAP as needed. The patient's repeat chest x-ray had shown mostly chronic interstitial changes. There was a questionable infiltrate in the left lower lobe. The patient's repeat procalcitonin has been trending up. He has been on Levaquin renally dosed, however as he has been hospitalized for almost a week at this point, would consider broadening antibiotics and continuing to trend procalcitonin and his inflammatory markers. The patient may need broader coverage, particularly given the increase in inflammatory markers and the elevated procalcitonin despite being on Levaquin. We will check a MRSA screen. The patient's D-dimer was also increasing. He was increased to full dose anticoagulation given concern for possible VTE contributing to his worsening hypoxia. His D-dimer is trending down currently. His lower extremity duplex was negative. Continue with Vapotherm during the day and wean down FiO2 as tolerated. We will continue with BIPAP q. h.s. and as needed to maintain his O2 sat above 90%. Continue with inhalers and rescue bronchodilator. CODE STATUS: DNR/DNI. We did discuss with the patient about his options for home Hospice. He is willing at this point however to continue with inpatient treatment. Total critical care time spent not including procedures approximately 35 minutes. Please do not hesitate to call if any further questions or concerns.
== END 2020-03-30 23:20 | disposition expired | DRG 177 ==
LOC: M ED 12:34 → M ED INP 15:25 → ENRESERV 16:28 → M 4MAIN 19:00 → M ICU 03-18 00:25
PROVIDERS: ADMIT Internal Medicine; ATTEND Family Medicine
PROC: XW033E5 Introduction of Remdesivir Anti-infective into Peripheral Vein, Percutaneous Approach, New Technology Group 5 (ICD-10-PCS; principal; 2020-03-13)
PROC: 3E0333Z Introduction of Anti-inflammatory into Peripheral Vein, Percutaneous Approach (ICD-10-PCS; 2020-03-13)
DX: U07.1 COVID-19 (principal); J12.89 Other viral pneumonia; G93.41 Metabolic encephalopathy; J96.01 Acute respiratory failure with hypoxia; I26.99 Other pulmonary embolism without acute cor pulmonale; N17.9 Acute kidney failure, unspecified; J44.0 Chronic obstructive pulmonary disease with (acute) lower respiratory infection; E11.22 Type 2 diabetes mellitus with diabetic chronic kidney disease; E78.5 Hyperlipidemia, unspecified; Z51.5 Encounter for palliative care; Z66 Do not resuscitate; K21.9 Gastro-esophageal reflux disease without esophagitis; N40.1 Benign prostatic hyperplasia with lower urinary tract symptoms; N18.9 Chronic kidney disease, unspecified; I48.91 Unspecified atrial fibrillation; R33.9 Retention of urine, unspecified; E87.5 Hyperkalemia; Z88.0 Allergy status to penicillin; Z79.82 Long term (current) use of aspirin; Z79.4 Long term (current) use of insulin; Z79.899 Other long term (current) drug therapy